=== PATIENT | male | born 1945 | race Caucasian/White ===

== ENCOUNTER 2018-07-03 19:13 | Emergency (ER) | payer MEDICARE, OTHER, SELFPAY ==
[2018-07-03 19:14] VITALS: BP 167/91; PULSE 58; RESP 20; TEMP 36.5; O2SAT 98; BMI 27.9
--- NOTE | 2018-07-03 19:58 | DI.CT.S_ITS ---
PROCEDURE: CT HEAD/BRAIN WO CON INDICATIONS: double vision TECHNIQUE: Noncontrast 4.5 mm thick angled axial sections acquired from the foramen magnum to the vertex, with coronal and sagittal reformats. For radiation dose reduction, the following was used: automated exposure control, adjustment of mA and/or kV according to patient size. COMPARISON: [facility], CT, HEAD WITHOUT CONTRAST, 11/28/2016, 19:22. FINDINGS: Image quality: Excellent. CSF spaces: Basal cisterns are patent. No extra-axial fluid collections. The ventricles are symmetric in size and shape. Brain: No intracranial bleeds or masses. There is cerebral volume loss for age, with resultant ventricular and sulcal prominence. There are periventricular and deep white matter chronic small vessel ischemic changes. There is intracranial internal carotid artery atherosclerosis. Skull and face: Calvarium and visualized facial bones appear intact, without suspicious lesions. Sinuses: Visualized sinuses and mastoids are clear. IMPRESSION: No acute intracranial abnormality. Dictated by: Tai Solo M.D. on 07/03/2018 at 20:40 Approved by: Tai Solo M.D. on 07/03/2018 at 20:41
--- NOTE | 2018-07-03 19:58 | DI.RAD.S_ITS ---
PROCEDURE: XR CHEST 1V INDICATIONS: palpitations TECHNIQUE: One view of the chest was acquired. COMPARISON: [facility], , CHEST 2 VIEW, 08/27/2011, 16:27. FINDINGS: Surgical changes and devices: Median sternotomy. Lungs and pleura: No pleural effusions or pneumothorax. Lungs are clear. Mediastinum: Mediastinal contours appear normal. Heart size is normal. Bones and chest wall: No suspicious bony lesions. Overlying soft tissues appear unremarkable. IMPRESSION: No acute process. Dictated by: Tai Solo M.D. on 07/03/2018 at 20:40 Approved by: Tai Solo M.D. on 07/03/2018 at 20:40
[2018-07-03 20:06] LABS: Add Manual Diff / Slide Review NO; Basophils Percent Auto 0.5 % (0-2); Eosinophils Percent Auto 1.2 % (2-4); Hematocrit 42.2 % (41-53); Hemoglobin 14.4 g/dL (13.5-17.5); Lymphocytes Percent Auto 26.6 % (25-40); Mean Corpuscular HGB Conc 34.1 % (30-36); Mean Corpuscular Hemoglobin 32.1 PG (26-34); Mean Corpuscular Volume 94.1 fL (80-100); Monocytes Percent Auto 10.3 % (3-14); Neutrophils Absolute Auto 5300 /uL (3000-5900); Neutrophils Percent Auto 61.4 % (50-75); Platelet Count 169 X10^3/uL (150-400); Red Blood Cell Count 4.49 X10^6/uL (4.5-5.9); Red Cell Distribution Width 13.1 % (11.6-14.8); White Blood Cell Count 8.7 X10^3/uL (4.5-11.0)
[2018-07-03 20:10] LABS: Alanine Aminotransferase 34 IU/L (21-72); Albumin 4.3 g/dL (3.5-5.0); Albumin Globulin Ratio 1.3 (1.0-2.8); Alkaline Phosphatase 74 U/L (38-126); Aspartate Aminotransferase 27 IU/L (17-59); Bilirubin Total 0.5 mg/dL (0.2-1.3); Blood Urea Nitrogen 24 mg/dL (9-20); Calcium 8.7 mg/dL (8.4-10.2); Carbon Dioxide 27 mmol/L (22-32); Chloride 104 mmol/L (98-107); Creatine Kinase 59 U/L (55-170); Globulin 3.3 g/dL (1.7-4.1); Glucose 111 mg/dL (80-110); HEMOLYSIS 21 (0-50); Potassium 4.5 mmol/L (3.4-5.1); Sodium 144 mmol/L (137-145); Total Protein 7.6 g/dL (6.3-8.2)
[2018-07-03 20:22] LABS: Troponin I 0.012 ng/mL (0.01-0.034)
[2018-07-03] MEDS: SODIUM CHLORIDE 0.9% 1,000 ML 1000 ML IV (20:44)
[2018-07-03 21:00] VITALS: BP 166/99; PULSE 67; RESP 23; O2SAT 95
--- NOTE | 2018-07-03 21:22 | ED.ARRPALP ---
HPI - Arrhythmia/Palpitations General Chief Complaint: Arrhythmia/Palpitations Stated Complaint: Double vision,states blood pressure elevated Time Seen by Provider: 07/03/18 19:37 Source: patient Mode of arrival: ambulatory Limitations: no limitations History of Present Illness HPI narrative: patient is a 73-year-old male who presents a with heart palpitations and double vision it he says he knows that his heart skips a beat. He did have a minute and half of double vision today. He got a little tunnel vision and lightheaded. He did not pass out. He had no speech difficulty or weakness. No facial drooping. he has had this happen a couple times over the last 6 months. He has a admitting counselor in [place] who wants him to have a Holter monitor which he in the past had refused because he was too busy. MD complaint: rapid heart beat Related Data Home Medications Medication Instructions Recorded Confirmed multivitamin [Multiple Vitamins] 1 tab PO QDAY #0 11/28/16 nitroglycerin [Nitrostat] 0.4 mg SUBLINGUAL PRN PRN #0 11/28/16 simvastatin 20 mg PO HS #0 11/29/16 carvedilol [Coreg] 25 mg PO BID #0 03/25/17 Previous Rx's Medication Instructions Recorded cephalexin [Keflex] 500 mg PO TID #21 cap 03/25/17 Allergies Allergy/AdvReac Type Severity Reaction Status Date / Time No Known Allergies Allergy Uncoded 12/29/17 12:37 Review of Systems Review of Systems All systems reviewed & are unremarkable except as noted in HPI and below Constitutional Denies chills, Denies fever(s), Denies lethargy and Denies weakness Eyes Reports diplopia Cardiovascular Reports as per HPI, Denies dyspnea and Denies dyspnea on exertion Respiratory Denies cough, Denies dyspnea, Denies dyspnea on exertion and Denies wheezing Gastrointestinal Gastrointestinal: Denies abdominal pain, Denies change in bowel habits, Denies diarrhea, Denies nausea and Denies vomiting Genitourinary Denies hematuria, Denies flank pain, Denies urinary incontinence and Denies urinary urgency Musculoskeletal Denies back pain, Denies muscle weakness, Denies numbness and Denies tingling Integumentary/Breasts Denies pruritus, Denies erythema, Denies rash and Denies wounds Neurologic Denies numbness, Denies tingling and Denies weakness Allergic/Immunologic Denies wheezing PFSH Medical History Coronary artery disease (Acute) Hyperlipidemia (Acute) Hypertension (Acute) Social History Smoking Status: Former smoker Exam Initial Vital Signs Initial Vital Signs: Vital Signs Temperature 97.7 F 07/03/18 19:14 Pulse Rate 58 L 07/03/18 19:14 Respiratory Rate 20 07/03/18 19:14 Blood Pressure 167/91 H 07/03/18 19:14 Pulse Oximetry 98 07/03/18 19:14 GENERAL: pleasant cooperative male alert oriented x3 no acute distress HEENT: Head atraumatic,EOMI, pupils reactive, face symmetric, neck is supple CARDIOVASCULAR: Regular rate and rhythm without murmurs, rubs or gallops. RESPIRATORY: Breath sounds equal bilaterally, no wheezes rales or rhonchi. ABDOMEN: Soft, nontender. Normoactive bowel sounds all 4 quadrants. No guarding or rebound. EXTREMITIES: Normal range of motion, no clubbing or edema. Neurovascularly intact NEUROLOGICAL: Alert and oriented x4.Normal gait and speech. Cranial nerves II through XII grossly intact. SKIN: Warm, dry, no laceration, no petechiae, no rashes or lesions. Course Orders Ordered: ED Orders 07/03/18 19:51 Complete Blood Count AUTO DIFF Stat Comprehensive Metabolic Panel Stat Troponin & CK Cardiac Panel Stat 07/03/18 19:58 CT head/brain wo con Stat XR chest 1V Stat Discontinued Medications Sodium Chloride (Normal Saline 0.9%) 1,000 mls @ 1,000 mls/hr IV BOLUS ONE Stop: 07/03/18 21:38 Last Infusion: 07/03/18 21:32 Dose: 0 mls/hr Admin: 07/03/18 20:44 Dose: 1,000 mls/hr Vital Signs - 8 hr 07/03/18 19:14 07/03/18 21:00 Temperature 97.7 F Pulse Rate 58 L 67 Respiratory Rate 20 23 Blood Pressure 167/91 H Blood Pressure [Right Arm] 166/99 H Pulse Oximetry 98 95 MDM - Arrhythmia/Palpitations Medical Records Attestation: I reviewed the patient's medical records. Lab Data Attestation: I reviewed the patient's lab results. Result diagrams: 07/03/18 19:51 07/03/18 19:51 Lab Results 10/14/18 10/14/18 Range/Units 19:51 19:51 WBC 8.7 (4.5-11.0) X10^3/uL RBC 4.49 L (4.5-5.9) X10^6/uL Hgb 14.4 (13.5-17.5) g/dL Hct 42.2 (41-53) % MCV 94.1 (80-100) fL MCH 32.1 (26-34) PG MCHC 34.1 (30-36) % RDW 13.1 (11.6-14.8) % Plt Count 169 (150-400) X10^3/uL Neut % (Auto) 61.4 (50-75) % Lymph % (Auto) 26.6 (25-40) % Davis % (Auto) 10.3 (3-14) % Eos % (Auto) 1.2 L (2-4) % Baso % (Auto) 0.5 (0-2) % Neut # (Auto) 5300 (3028-0423) /uL Sodium 144 (137-145) mmol/L Potassium 4.5 (3.4-5.1) mmol/L Chloride 104 (98-107) mmol/L Carbon Dioxide 27 (22-32) mmol/L BUN 24 H (9-20) mg/dL Creatinine 1.50 H (0.66-1.25) mg/dL Estimated GFR 46.0 L (>60) mL/min BUN/Creatinine Ratio 16.0 (6-22) Glucose 111 H (80-110) mg/dL Calcium 8.7 (8.4-10.2) mg/dL Total Bilirubin 0.5 (0.2-1.3) mg/dL AST 27 (17-59) IU/L ALT 34 (21-72) IU/L Alkaline Phosphatase 74 (38-126) U/L Total Creatine Kinase 59 (55-170) U/L CK-MB (CK-2) TNP CK-MB (CK-2) Rel Index TNP Troponin I 0.012 (0.01-0.034) ng/mL Total Protein 7.6 (6.3-8.2) g/dL Albumin 4.3 (3.5-5.0) g/dL Globulin 3.3 (1.7-4.1) g/dL Albumin/Globulin Ratio 1.3 (1.0-2.8) Imaging Data Chest x-ray: Radiologist's impression: PROCEDURE: XR CHEST 1V INDICATIONS: palpitations TECHNIQUE: One view of the chest was acquired. COMPARISON: [facility], CR, CHEST 2 VIEW, 08/27/2011, 16:27. FINDINGS: Surgical changes and devices: Median sternotomy. Lungs and pleura: No pleural effusions or pneumothorax. Lungs are clear. Mediastinum: Mediastinal contours appear normal. Heart size is normal. Bones and chest wall: No suspicious bony lesions. Overlying soft tissues appear unremarkable. IMPRESSION: No acute process. Dictated by: Tai Solo M.D. on 07/03/2018 at 20:[address]: Radiologist's impression: PROCEDURE: CT HEAD/BRAIN WO CON INDICATIONS: double vision TECHNIQUE: Noncontrast 4.5 mm thick angled axial sections acquired from the foramen magnum to the vertex, with coronal and sagittal reformats. For radiation dose reduction, the following was used: automated exposure control, adjustment of mA and/or kV according to patient size. COMPARISON: [facility], CT, HEAD WITHOUT CONTRAST, 11/28/2016, 19:22. FINDINGS: Image quality: Excellent. CSF spaces: Basal cisterns are patent. No extra-axial fluid collections. The ventricles are symmetric in size and shape. Brain: No intracranial bleeds or masses. There is cerebral volume loss for age, with resultant ventricular and sulcal prominence. There are periventricular and deep white matter chronic small vessel ischemic changes. There is intracranial internal carotid artery atherosclerosis. Skull and face: Calvarium and visualized facial bones appear intact, without suspicious lesions. Sinuses: Visualized sinuses and mastoids are clear. IMPRESSION: No acute intracranial abnormality. Dictated by: Tai Solo M.D. on 07/03/2018 at 20:40 ECG Data Attestation: I personally reviewed and interpreted this ECG as follows: Prior ECG tracings: available for review Interpretation: sinus rhythm rate 67 appear interval 207, QRS 94, QTC 440, PVCs noted does have T-wave inversions noted in V5 and V6 no ST elevation or depression more prominent T-wave inversions this EKG compared to previous but that are present from 2017 this is similar EKG MDM Narrative Medical decision making narrative: patient has no chest pain or heart palpitations. He had a brief episode of double vision but no focal deficits or stroke like symptoms. He does have a admitting counselor in [place] who recommend she follow up for a Holter monitor. He also has had no syncopal episodes. I discussed all findings with the patient Education has been performed regarding treatment plan, diagnosis, warning signs and symptoms and all concerns have been addressed. Verbally agree with and understood all of the above. Discharge Plan Departure Patient Disposition: Home Clinical Impression: Ventricular premature beats Discharge Date/Time: 07/03/18 21:33 Interventions: ED Discharge Assessment Last Done: 07/03/18 21:32 Instructions: Premature Ventricular Beats Activity Restrictions/Additional Instructions: *You have been diagnosed with Heart palpitations *What to do: decrease caffeine, increase water intake, blood work and head CT are reassuring - need Holter monitor, talk to your admitting counselor about this tomorrow *Continue to take medications as directed *Follow up with your primary care provider in 2-3 days *Return to ER if you should have persistent dizziness, lightheadedness, weakness, speech trouble any new, worsening or concerning symptoms Prescriptions: No Action multivitamin [Multiple Vitamins] 1 EACH tablet 1 tab PO QDAY Qty: 0 RF: 0 nitroglycerin [Nitrostat] 0.4 MG tablet, sublingual 0.4 mg Sublingual PRN PRNQty: 0 RF: 0 simvastatin 40 MG tablet 20 mg PO HS Qty: 0 RF: 0 carvedilol [Coreg] 25 MG tablet 25 mg PO BID Qty: 0 RF: 0 cephalexin [Keflex] 500 MG capsule 500 mg PO TID Qty: 21 RF: 0 Referrals: Juan R Pepe MD [Primary Care Provider] -
--- NOTE | 2018-07-03 21:25 | ED_ITS ---
HPI - Arrhythmia/Palpitations General Chief Complaint: Arrhythmia/Palpitations Stated Complaint: Double vision,states blood pressure elevated Time Seen by Provider: 07/03/18 19:37 Source: patient Mode of arrival: ambulatory Limitations: no limitations History of Present Illness HPI narrative: patient is a 73-year-old male who presents a with heart palpitations and double vision it he says he knows that his heart skips a beat. He did have a minute and half of double vision today. He got a little tunnel vision and lightheaded. He did not pass out. He had no speech difficulty or weakness. No facial drooping. he has had this happen a couple times over the last 6 months. He has a inside sales coordinator in [place] who wants him to have a Holter monitor which he in the past had refused because he was too busy. MD complaint: rapid heart beat Related Data Home Medications Medication Instructions Recorded Confirmed multivitamin [Multiple Vitamins] 1 tab PO QDAY #0 11/28/16 nitroglycerin [Nitrostat] 0.4 mg SUBLINGUAL PRN PRN #0 11/28/16 simvastatin 20 mg PO HS #0 11/29/16 carvedilol [Coreg] 25 mg PO BID #0 03/25/17 Previous Rx's Medication Instructions Recorded cephalexin [Keflex] 500 mg PO TID #21 cap 03/25/17 Allergies Allergy/AdvReac Type Severity Reaction Status Date / Time No Known Allergies Allergy Uncoded 12/29/17 12:37 Review of Systems Review of Systems All systems reviewed & are unremarkable except as noted in HPI and below Constitutional Denies chills, Denies fever(s), Denies lethargy and Denies weakness Eyes Reports diplopia Cardiovascular Reports as per HPI, Denies dyspnea and Denies dyspnea on exertion Respiratory Denies cough, Denies dyspnea, Denies dyspnea on exertion and Denies wheezing Gastrointestinal Gastrointestinal: Denies abdominal pain, Denies change in bowel habits, Denies diarrhea, Denies nausea and Denies vomiting Genitourinary Denies hematuria, Denies flank pain, Denies urinary incontinence and Denies urinary urgency Musculoskeletal Denies back pain, Denies muscle weakness, Denies numbness and Denies tingling Integumentary/Breasts Denies pruritus, Denies erythema, Denies rash and Denies wounds Neurologic Denies numbness, Denies tingling and Denies weakness Allergic/Immunologic Denies wheezing PFSH Medical History Coronary artery disease (Acute) Hyperlipidemia (Acute) Hypertension (Acute) Social History Smoking Status: Former smoker Exam Initial Vital Signs Initial Vital Signs: Vital Signs Temperature 97.7 F 07/03/18 19:14 Pulse Rate 58 L 07/03/18 19:14 Respiratory Rate 20 07/03/18 19:14 Blood Pressure 167/91 H 07/03/18 19:14 Pulse Oximetry 98 07/03/18 19:14 GENERAL: pleasant cooperative male alert oriented x3 no acute distress HEENT: Head atraumatic,EOMI, pupils reactive, face symmetric, neck is supple CARDIOVASCULAR: Regular rate and rhythm without murmurs, rubs or gallops. RESPIRATORY: Breath sounds equal bilaterally, no wheezes rales or rhonchi. ABDOMEN: Soft, nontender. Normoactive bowel sounds all 4 quadrants. No guarding or rebound. EXTREMITIES: Normal range of motion, no clubbing or edema. Neurovascularly intact NEUROLOGICAL: Alert and oriented x4.Normal gait and speech. Cranial nerves II through XII grossly intact. SKIN: Warm, dry, no laceration, no petechiae, no rashes or lesions. Course Orders Ordered: ED Orders 07/03/18 19:51 Complete Blood Count AUTO DIFF Stat Comprehensive Metabolic Panel Stat Troponin & CK Cardiac Panel Stat 07/03/18 19:58 CT head/brain wo con Stat XR chest 1V Stat Discontinued Medications Sodium Chloride (Normal Saline 0.9%) 1,000 mls @ 1,000 mls/hr IV BOLUS ONE Stop: 07/03/18 21:38 Last Infusion: 07/03/18 21:32 Dose: 0 mls/hr Admin: 07/03/18 20:44 Dose: 1,000 mls/hr Vital Signs - 8 hr 07/03/18 19:14 07/03/18 21:00 Temperature 97.7 F Pulse Rate 58 L 67 Respiratory Rate 20 23 Blood Pressure 167/91 H Blood Pressure [Right Arm] 166/99 H Pulse Oximetry 98 95 MDM - Arrhythmia/Palpitations Medical Records Attestation: I reviewed the patient's medical records. Lab Data Attestation: I reviewed the patient's lab results. Result diagrams: 07/03/18 19:51 07/03/18 19:51 Lab Results 10/14/18 10/14/18 Range/Units 19:51 19:51 WBC 8.7 (4.5-11.0) X10^3/uL RBC 4.49 L (4.5-5.9) X10^6/uL Hgb 14.4 (13.5-17.5) g/dL Hct 42.2 (41-53) % MCV 94.1 (80-100) fL MCH 32.1 (26-34) PG MCHC 34.1 (30-36) % RDW 13.1 (11.6-14.8) % Plt Count 169 (150-400) X10^3/uL Neut % (Auto) 61.4 (50-75) % Lymph % (Auto) 26.6 (25-40) % [place] % (Auto) 10.3 (3-14) % Eos % (Auto) 1.2 L (2-4) % Baso % (Auto) 0.5 (0-2) % Neut # (Auto) 5300 (3272-2493) /uL Sodium 144 (137-145) mmol/L Potassium 4.5 (3.4-5.1) mmol/L Chloride 104 (98-107) mmol/L Carbon Dioxide 27 (22-32) mmol/L BUN 24 H (9-20) mg/dL Creatinine 1.50 H (0.66-1.25) mg/dL Estimated GFR 46.0 L (>60) mL/min BUN/Creatinine Ratio 16.0 (6-22) Glucose 111 H (80-110) mg/dL Calcium 8.7 (8.4-10.2) mg/dL Total Bilirubin 0.5 (0.2-1.3) mg/dL AST 27 (17-59) IU/L ALT 34 (21-72) IU/L Alkaline Phosphatase 74 (38-126) U/L Total Creatine Kinase 59 (55-170) U/L CK-MB (CK-2) TNP CK-MB (CK-2) Rel Index TNP Troponin I 0.012 (0.01-0.034) ng/mL Total Protein 7.6 (6.3-8.2) g/dL Albumin 4.3 (3.5-5.0) g/dL Globulin 3.3 (1.7-4.1) g/dL Albumin/Globulin Ratio 1.3 (1.0-2.8) Imaging Data Chest x-ray: Radiologist's impression: PROCEDURE: XR CHEST 1V INDICATIONS: palpitations TECHNIQUE: One view of the chest was acquired. COMPARISON: [facility], CR, CHEST 2 VIEW, 08/27/2011, 16:27. FINDINGS: Surgical changes and devices: Median sternotomy. Lungs and pleura: No pleural effusions or pneumothorax. Lungs are clear. Mediastinum: Mediastinal contours appear normal. Heart size is normal. Bones and chest wall: No suspicious bony lesions. Overlying soft tissues appear unremarkable. IMPRESSION: No acute process. Dictated by: Tai Solo M.D. on 07/03/2018 at 20:[address]: Radiologist's impression: PROCEDURE: CT HEAD/BRAIN WO CON INDICATIONS: double vision TECHNIQUE: Noncontrast 4.5 mm thick angled axial sections acquired from the foramen magnum to the vertex, with coronal and sagittal reformats. For radiation dose reduction, the following was used: automated exposure control, adjustment of mA and/or kV according to patient size. COMPARISON: [facility], CT, HEAD WITHOUT CONTRAST, 11/28/2016, 19:22. FINDINGS: Image quality: Excellent. CSF spaces: Basal cisterns are patent. No extra-axial fluid collections. The ventricles are symmetric in size and shape. Brain: No intracranial bleeds or masses. There is cerebral volume loss for age , with resultant ventricular and sulcal prominence. There are periventricular and deep white matter chronic small vessel ischemic changes. There is intracranial internal carotid artery atherosclerosis. Skull and face: Calvarium and visualized facial bones appear intact, without suspicious lesions. Sinuses: Visualized sinuses and mastoids are clear. IMPRESSION: No acute intracranial abnormality. Dictated by: Tai Solo M.D. on 07/03/2018 at 20:40 ECG Data Attestation: I personally reviewed and interpreted this ECG as follows: Prior ECG tracings: available for review Interpretation: sinus rhythm rate 67 appear interval 207, QRS 94, QTC 440, PVCs noted does have T-wave inversions noted in V5 and V6 no ST elevation or depression more prominent T-wave inversions this EKG compared to previous but that are present from 2017 this is similar EKG MDM Narrative Medical decision making narrative: patient has no chest pain or heart palpitations. He had a brief episode of double vision but no focal deficits or stroke like symptoms. He does have a inside sales coordinator in [place] who recommend she follow up for a Holter monitor. He also has had no syncopal episodes. I discussed all findings with the patient Education has been performed regarding treatment plan, diagnosis, warning signs and symptoms and all concerns have been addressed. Verbally agree with and understood all of the above. Discharge Plan Departure Patient Disposition: Home Clinical Impression: Ventricular premature beats Discharge Date/Time: 07/03/18 21:33 Interventions: ED Discharge Assessment Last Done: 07/03/18 21:32 Instructions: Premature Ventricular Beats Activity Restrictions/Additional Instructions: *You have been diagnosed with Heart palpitations *What to do: decrease caffeine, increase water intake, blood work and head CT are reassuring - need Holter monitor, talk to your inside sales coordinator about this tomorrow *Continue to take medications as directed *Follow up with your primary care provider in 2-3 days *Return to ER if you should have persistent dizziness, lightheadedness, weakness, speech trouble any new, worsening or concerning symptoms Prescriptions: No Action multivitamin [Multiple Vitamins] 1 EACH tablet 1 tab PO QDAY Qty: 0 RF: 0 nitroglycerin [Nitrostat] 0.4 MG tablet, sublingual 0.4 mg Sublingual PRN PRNQty: 0 RF: 0 simvastatin 40 MG tablet 20 mg PO HS Qty: 0 RF: 0 carvedilol [Coreg] 25 MG tablet 25 mg PO BID Qty: 0 RF: 0 cephalexin [Keflex] 500 MG capsule 500 mg PO TID Qty: 21 RF: 0 Referrals: Juan R Pepe MD [Primary Care Provider] -
== END 2018-07-03 21:33 | disposition home or self-care (01) ==
PROVIDERS: Emergency Provider Emergency Medicine; Family Provider Internal Medicine Cardiovascular Disease; PCP Internal Medicine Cardiovascular Disease
DX: I49.3 Ventricular premature depolarization (principal); H53.489 Generalized contraction of visual field, unspecified eye; H53.2 Diplopia
CPT/HCPCS: 36591; 70450; 71045; 80053; 82550; 84484; 85025; 93005; 93010; 96360; 99283; 99285

== ENCOUNTER 2021-04-19 10:53 | Emergency (ER) | payer MEDICARE, OTHER, SELFPAY ==
--- NOTE | 2021-04-19 11:03 | ED_ITS ---
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 He was using a personal automobile washer steam with water when he accidentally sprayed his finger. He suffered a laceration which he cleaned at home and then wrapped with gauze. He has full but painful range of motion and denies any numbness, tingling or weakness. He is otherwise well and free of complaint Related Data Home Medications Medication Instructions Recorded Confirmed multivitamin (Multiple Vitamins) 1 tab PO QDAY #0 11/28/16 nitroglycerin 0.4 mg sublingual 0.4 mg SUBLINGUAL PRN PRN #0 11/28/16 tablet (Nitrostat) simvastatin 40 mg tablet 20 mg PO HS #0 11/29/16 carvedilol 25 mg tablet (Coreg) 25 mg PO BID #0 03/25/17 Previous Rx's Medication Instructions Recorded cephalexin 500 mg capsule (Keflex) 500 mg PO TID #21 cap 03/25/17 cephalexin 500 mg capsule 500 mg PO Q6H 7 Days #28 cap 04/19/21 Allergies Allergy/AdvReac Type Severity Reaction Status Date / Time No Known Allergies Allergy Uncoded 12/29/17 12:37 Review of Systems Review of Systems Narrative: GENERAL: Denies chills, fatigue, malaise, fever, sweats. HEENT: Denies sinus pain, ear pain, sore throat, difficulty swallowing, dizziness. RESPIRATORY: Denies dyspnea, cough, wheezing, hemoptysis, sputum. CARDIOVASCULAR: Denies chest pain, palpitations, orthopnea, edema, GASTROINTESTINAL: Denies nausea, vomiting, abdominal pain, diarrhea, constipation, melena. : Denies dysuria, frequency, incontinence, hematuria, urinary retention. MUSCULOSKELETAL: See HPI SKIN: Denies rash, skin lesions, or other NEUROLOGIC: Denies weakness, headache, numbness, change in speech, confusion, seizures, incoordination. PSYCHIATRIC: No concerning psychosocial issues. 12 point review of systems is negative except for those stated above Patient History Medical History Coronary artery disease Hyperlipidemia Hypertension Social History Smoking Status: Former smoker Smoking Status: Former smoker Substance Use Type: does not use Exam Narrative Exam Narrative: GEN: AOx3 and in mild distress EYES: Pupils are equal, round, and reactive to light and accommodation. Extraoccular muscles are intact bilaterally. There is no subconjunctival hemorrhage or exudate. CHEST: Lungs are clear to auscultation bilaterally and free of wheezes, rales, or rhonchi. Heart rate is regular rhythm, there are no murmurs, clicks, rubs, or gallops. There is no chest wall tenderness. ABD: Abdomen is soft and nontender. There is no guarding or rebound. Bowel sounds are normal in all 4 quadrants. There is no mass or organomegaly. EXT: Superficial abrasions/laceration noted on the dorsum of the left index finger without active bleeding, sensation intact, no evidence of neurovascular compromise. Full painless ROM of all extremities with no loss of sensation or strength. SKIN: Warm, pink, and dry. No erythema or rash Initial Vital Signs Initial Vital Signs: Vital Signs Temperature 98.2 F 04/19/21 11:07 Pulse Rate 68 04/19/21 11:07 Respiratory Rate 15 04/19/21 11:07 Blood Pressure 215/101 H 04/19/21 11:07 Pulse Oximetry 97 04/19/21 11:07 Procedures Orthopedic Splinting/Casting Injury #1: Side: left Upper Extremity Injury Location: finger Upper Extremity Immobilizer: aluminum form splint Post splinting neuro exam: intact Post splinting vascular exam: intact Placed by: Nursing Course Orders Ordered: ED Orders 04/19/21 11:10 XR finger LT min 2V Stat Vital Signs Vital signs: Vital Signs - 8 hr 04/19/21 11:07 Temperature 98.2 F Pulse Rate 68 Respiratory Rate 15 Blood Pressure 215/101 H Pulse Oximetry 97 MDM - Extremity Injury (Upper) Imaging Data Extremity x-ray #1: Radiologist's Impression: [address] [id number] ReportSigned Patient: Peña Corrigan EMR#: [id number]: 6Acct:[id number]/Sex: 75 / MDate of Service: 04/19/21Lo: EDAccession Number: [id number] Procedure: XR finger LT min 2V Ordering Provider: Emanuel Meyers D.O. PROCEDURE: XR FINGER LT MIN 2V INDICATIONS: finger vs automobile washer steam. left hand 2nd digit TECHNIQUE: AP hand, 2 views of the left 2nd finger(s) acquired. COMPARISON: None. FINDINGS: Bones: No fractures or dislocations. No suspicious bony lesions. Soft tissues: No suspicious soft tissue calcifications. IMPRESSION: No acute fracture. No osseous lesion. If symptoms and/or clinical suspicion for pathology persist, further assessment with repeat, or advanced imaging (e.g., CT, MRI, or bone scan) may be helpful for further assessment. Dictated by: Tai Solo M.D. on 04/19/2021 at 10:55 Approved by: Tai Solo M.D. 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 No signs of infection, full range of motion. Return precautions given and questions answered to his apparent satisfaction Discharge Plan Departure Patient Disposition: Home Clinical Impression: Abrasion of finger of left hand Qualifiers: Encounter type: initial encounter Qualified Code(s): S60.419A - Abrasion of unspecified finger, initial encounter Activity Restrictions/Additional Instructions: *You have been diagnosed with [automobile washer steam injury of left index finger with abrasion/laceration, no indication for sutures or current infection] *What to do: *Please continue to take your regular medications as directed. [x ] New medication prescriptions sent to your pharmacy: [ ] [ ] New medication written as a paper prescription [ ] No new medications given *Please follow up with your primary care provider in 2-3 days, call for an appointment. Let them know you were seen in the Emergency Department and that we ask that you be seen in follow up. We will electronically transmit a record of today's note if your PCP is in our system *If you do not have a primary care provider please contact the [facility] Resource line at [phone]. They will ask some questions about your medical history and help get you set up with a doctor in the community. *Return to Emergency Department if you should have any new, worsening or concerning symptoms, such as [fever greater than 101 F, shaking chills, worsening pain, persistent vomiting or other bothersome symptoms] Prescriptions: New cephalexin 500 mg capsule 500 mg PO Q6H 7 Days Qty: 28 RF: 0 No Action multivitamin [Multiple Vitamins] 1 EACH tablet 1 tab PO QDAY Qty: 0 RF: 0 nitroglycerin [Nitrostat] 0.4 MG tablet, sublingual 0.4 mg Sublingual PRN PRNQty: 0 RF: 0 simvastatin 40 MG tablet 20 mg PO HS Qty: 0 RF: 0 carvedilol [Coreg] 25 MG tablet 25 mg PO BID Qty: 0 RF: 0 cephalexin [Keflex] 500 MG capsule 500 mg PO TID Qty: 21 RF: 0 Referrals: Juan R Pepe MD [Primary Care Provider] -
[2021-04-19 11:07] VITALS: BP 215/101; PULSE 68; RESP 15; TEMP 36.8; O2SAT 97; BMI 27.2
--- NOTE | 2021-04-19 11:10 | DI.RAD.S_ITS ---
PROCEDURE: XR FINGER LT MIN 2V INDICATIONS: finger vs bottle washer. left hand 2nd digit TECHNIQUE: AP hand, 2 views of the left 2nd finger(s) acquired. COMPARISON: None. FINDINGS: Bones: No fractures or dislocations. No suspicious bony lesions. Soft tissues: No suspicious soft tissue calcifications. IMPRESSION: No acute fracture. No osseous lesion. If symptoms and/or clinical suspicion for pathology persist, further assessment with repeat, or advanced imaging (e.g., CT, MRI, or bone scan) may be helpful for further assessment. Dictated by: Tai Solo M.D. on 04/19/2021 at 10:55 Approved by: Tai Solo M.D. on 04/19/2021 at 10:55
== END 2021-04-19 12:20 | disposition home or self-care (01) ==
PROVIDERS: Emergency Provider Emergency Medicine; Family Provider Internal Medicine Cardiovascular Disease; PCP Internal Medicine Cardiovascular Disease
DX: S60.419A Abrasion of unspecified finger, initial encounter (principal); X58.XXXA Exposure to other specified factors, initial encounter
CPT/HCPCS: 73140; 99281; 99283

== ENCOUNTER 2024-07-04 14:58 | Inpatient (IN) | payer MEDICARE, SELFPAY ==
[2024-07-04] VITALS (22 sets, daily range): BP systolic 135–199; BP diastolic 72–96; PULSE 48–75; RESP 10–25; TEMP 36.1–36.9; O2SAT 94–100; BMI 27.9
--- NOTE | 2024-07-04 15:06 | ED_ITS ---
HPI - Syncope <Ham Eisenberg DO - Last Filed: 07/04/24 17:49> General Chief Complaint: Syncope Stated Complaint: syncope, fall onto chest Time Seen by Provider: 07/04/24 15:06 History of Present Illness HPI narrative: Patient is a 79-year-old male with a history of hypertension, hyperlipidemia, CABG, comes into the ED from home for evaluation of syncope. States that he was using a shovel started feeling lightheaded dizzy, states that he then fell forward but did not actually pass out, states that the shovel hit him in his chest it is now having chest pain over his heart. He has not on any blood thinners, he has not complaining of any other symptoms at this time no visual disturbances no shortness of breath no fever chills nausea vomiting or any other GI/ symptoms. Related Data Home Medications Medication Instructions Recorded Confirmed atorvastatin 40 mg tablet 40 mg PO DAILY 07/04/24 07/04/24 losartan 100 1 tab PO DAILY blood pressure 07/04/24 07/04/24 mg-hydrochlorothiazide 25 mg tablet Allergies Allergy/AdvReac Type Severity Reaction Status Date / Time No Known Drug Allergies Allergy Verified 07/04/24 15:11 Review of Systems <Ham Eisenberg DO - Last Filed: 07/04/24 17:49> Review of Systems Narrative: General: Denies fever, chills, weight loss HEENT: Denies headache, eye drainage, eye irritation, head trauma, sore throat, voice change Cardiovascular: Denies any chest pain, palpitations, shortness of breath, tachycardia Respiratory: Denies any shortness of breath, cough, wheeze, stridor GI/: Denies any abdominal pain, nausea, vomiting, diarrhea, bright red blood per rectum, melanotic stools, urinary frequency, urinary retention, dysuria, hematuria MSK: Left anterior chest pain/rib pain Skin: Denies any rashes, lesions, discoloration Neuro: Positive lightheaded and dizziness Psych: Denies SI/HI Patient History <Ham Eisenberg DO - Last Filed: 07/04/24 17:49> Medical History Coronary artery disease Hyperlipidemia Hypertension Social History Smoking Status: Former smoker Smoking Status: Former smoker alcohol intake frequency: 0-2 drinks per day Substance Use Type: does not use Exam <Ham Eisenberg DO - Last Filed: 07/04/24 17:49> Narrative Exam Narrative: General: Cooperative, comfortable, well-developed, not in acute distress HEENT: Normocephalic, atraumatic, PERRLA, normal sclera, eyelids normal, Neck: Active full range of motion, atraumatic Chest: Normal to inspection, negative crepitus, no overlying erythema ecchymosis Respiratory: Normal respiratory effort, not in acute respiratory distress, clear to auscultation bilaterally negative cough, wheeze, tachypnea, rhonchi, rales Cardiology: Regular rate rhythm negative gallop, murmur, rubs GI/: Normal to inspection, soft, nonrigid, no tenderness to palpation, exam deferred MSK: Full range of active range of motion of all 4 extremities, atraumatic Skin: No rashes lesions noted Neuro: Alert awake oriented x3, moves all 4 extremities spontaneously, cranial nerves intact, able to answer all questions appropriately follows commands appropriately Psych: Cooperative, negative suicidal or homicidal ideations Initial Vital Signs Initial Vital Signs: Vital Signs Temperature 97.0 F L 07/04/24 14:58 Pulse Rate 53 L 07/04/24 14:58 Respiratory Rate 14 07/04/24 14:58 Blood Pressure 199/94 H 07/04/24 14:58 Pulse Oximetry 99 07/04/24 14:58 Oxygen Delivery Method Room Air 07/04/24 14:58 <Perez Marquis DO - Last Filed: 07/05/24 00:15> Initial Vital Signs Initial Vital Signs: Vital Signs Temperature 97.0 F L 07/04/24 14:58 Pulse Rate 53 L 07/04/24 14:58 Respiratory Rate 14 07/04/24 14:58 Blood Pressure 199/94 H 07/04/24 14:58 Pulse Oximetry 99 07/04/24 14:58 Oxygen Delivery Method Room Air 07/04/24 14:58 Course <Ham Eisenberg DO - Last Filed: 07/04/24 17:49> Orders Ordered: ED Orders 07/04/24 16:00 Complete Blood Count AUTO DIFF Stat Comprehensive Metabolic Panel Stat Magnesium Stat NT-proBNP (BNP-Adult 18+) Stat PTT Partial Thromboplastin Jorge Stat Prothrombin Time INR Stat Troponin & CK Cardiac Panel Stat 07/04/24 18:00 Trop I [Troponin I] Routine 07/04/24 18:19 CT angio chest PE protocol Stat 07/04/24 19:55 Education, smoking cessation ONGOING 07/05/24 05:00 Basic Metabolic Panel DAILY Complete Blood Count AUTO DIFF DAILY Acetaminophen (Acetaminophen 325 Mg Tablet) 650 mg PO Q6H PRN PRN Reason: Fever/Mild Pain (1-3) Hydrocodone Bitart/Acetaminophen (Hydrocodone/Acet 5/325 Tablet) 1 tab PO Q4H PRN PRN Reason: Pain, Moderate (4-6) Atorvastatin Calcium (Atorvastatin 20 Mg Tablet) 40 mg PO DAILY ROBERT Calcium Carbonate (Calcium Carbonate 500 Mg Tab) 1,000 mg PO Q4HR PRN PRN Reason: Dyspepsia Enoxaparin Sodium (Enoxaparin 40 Mg/0.4 Ml Syringe) 40 mg SUBCUT DAILY [facility] Hydrochlorothiazide (Hydrochlorothiazide 25 Mg Tablet) 25 mg PO DAILY [facility] Ketorolac Tromethamine (Ketorolac 30 Mg/Ml Vial) 30 mg IV Q6H PRN PRN Reason: Pain, Moderate (4-6) Stop: 07/09/24 19:59 Losartan Potassium (Losartan 50 Mg Tablet) 100 mg PO DAILY [facility] Morphine Sulfate (Morphine 4 Mg/Ml Inj) 3 mg IV Q2HR [facility] Last Admin: 07/04/24 21:45 Dose: Not Given Documented By: CHAMP Naloxone HCl (Naloxone 0.4 Mg/Ml Vial) 0.2 mg IV Q2MIN PRN PRN Reason: Opiate Reversal Ondansetron HCl (Ondansetron 4 Mg/2 Ml Inj) 4 mg IV Q8HR PRN PRN Reason: Nausea And Vomiting Discontinued Medications Aspirin (Aspirin 81 Mg Chew Tab) 324 mg PO NOW ONE Stop: 07/04/24 15:03 Last Admin: 07/04/24 15:42 Dose: Not Given Documented By: Sodium Chloride (Normal Saline 0.9%) 1,000 mls @ 1,000 mls/hr IV BOLUS ONE Stop: 07/04/24 18:49 Last Infusion: 07/04/24 19:34 Dose: Infused Documented By: Admin: 07/04/24 18:40 Dose: 1,000 mls/hr Documented By: Vital Signs Vital signs: Vital Signs - 8 hr 07/04/24 16:15 07/04/24 16:15 07/04/24 16:30 Pulse Rate 49 L 53 L Respiratory Rate 17 15 Blood Pressure 198/79 H Pulse Oximetry 94 97 07/04/24 16:30 07/04/24 16:45 07/04/24 16:45 Pulse Rate 62 Respiratory Rate 14 Blood Pressure 179/79 H 179/81 H Pulse Oximetry 96 07/04/24 17:00 07/04/24 17:00 07/04/24 17:16 Pulse Rate 59 L 59 L Respiratory Rate 14 13 Blood Pressure 159/72 H Pulse Oximetry 98 97 07/04/24 17:16 07/04/24 17:30 07/04/24 17:30 Pulse Rate 64 Respiratory Rate 19 Blood Pressure 162/77 H 175/85 H Pulse Oximetry 99 07/04/24 17:45 07/04/24 17:45 07/04/24 18:00 Pulse Rate 64 64 Respiratory Rate 17 25 H Blood Pressure 176/79 H Pulse Oximetry 97 98 07/04/24 18:01 07/04/24 18:01 07/04/24 18:15 Pulse Rate 64 Respiratory Rate 23 Blood Pressure 178/87 H 170/83 H Pulse Oximetry 99 07/04/24 18:15 07/04/24 18:30 07/04/24 18:30 Pulse Rate 59 L 57 L Respiratory Rate 14 15 Blood Pressure 168/79 H Pulse Oximetry 98 98 07/04/24 18:45 07/04/24 18:45 07/04/24 19:00 Pulse Rate 62 63 Respiratory Rate 18 18 Blood Pressure 174/96 H Pulse Oximetry 98 98 <Perez Marquis, DO - Last Filed: 07/05/24 00:15> Orders Ordered: ED Orders 07/04/24 16:00 Complete Blood Count AUTO DIFF Stat Comprehensive Metabolic Panel Stat Magnesium Stat NT-proBNP (BNP-Adult 18+) Stat PTT Partial Thromboplastin Jorge Stat Prothrombin Time INR Stat Troponin & CK Cardiac Panel Stat 07/04/24 18:00 Trop I [Troponin I] Routine 07/04/24 18:19 CT angio chest PE protocol Stat 07/04/24 19:55 Education, smoking cessation ONGOING 07/05/24 05:00 Basic Metabolic Panel DAILY Complete Blood Count AUTO DIFF DAILY Acetaminophen (Acetaminophen 325 Mg Tablet) 650 mg PO Q6H PRN PRN Reason: Fever/Mild Pain (1-3) Hydrocodone Bitart/Acetaminophen (Hydrocodone/Acet 5/325 Tablet) 1 tab PO Q4H PRN PRN Reason: Pain, Moderate (4-6) Atorvastatin Calcium (Atorvastatin 20 Mg Tablet) 40 mg PO DAILY [facility] Calcium Carbonate (Calcium Carbonate 500 Mg Tab) 1,000 mg PO Q4HR PRN PRN Reason: Dyspepsia Enoxaparin Sodium (Enoxaparin 40 Mg/0.4 Ml Syringe) 40 mg SUBCUT DAILY [facility] Hydrochlorothiazide (Hydrochlorothiazide 25 Mg Tablet) 25 mg PO DAILY [facility] Ketorolac Tromethamine (Ketorolac 30 Mg/Ml Vial) 30 mg IV Q6H PRN PRN Reason: Pain, Moderate (4-6) Stop: 07/09/24 19:59 Losartan Potassium (Losartan 50 Mg Tablet) 100 mg PO DAILY [facility] Morphine Sulfate (Morphine 4 Mg/Ml Inj) 3 mg IV Q2HR [facility] Last Admin: 07/04/24 21:45 Dose: Not Given Documented By: CHAMP Naloxone HCl (Naloxone 0.4 Mg/Ml Vial) 0.2 mg IV Q2MIN PRN PRN Reason: Opiate Reversal Ondansetron HCl (Ondansetron 4 Mg/2 Ml Inj) 4 mg IV Q8HR PRN PRN Reason: Nausea And Vomiting Discontinued Medications Aspirin (Aspirin 81 Mg Chew Tab) 324 mg PO NOW ONE Stop: 07/04/24 15:03 Last Admin: 07/04/24 15:42 Dose: Not Given Documented By: Sodium Chloride (Normal Saline 0.9%) 1,000 mls @ 1,000 mls/hr IV BOLUS ONE Stop: 07/04/24 18:49 Last Infusion: 07/04/24 19:34 Dose: Infused Documented By: Admin: 07/04/24 18:40 Dose: 1,000 mls/hr Documented By: Vital Signs Vital signs: Vital Signs - 8 hr 07/04/24 16:15 07/04/24 16:15 07/04/24 16:30 Pulse Rate 49 L 53 L Respiratory Rate 17 15 Blood Pressure 198/79 H Pulse Oximetry 94 97 07/04/24 16:30 07/04/24 16:45 07/04/24 16:45 Pulse Rate 62 Respiratory Rate 14 Blood Pressure 179/79 H 179/81 H Pulse Oximetry 96 07/04/24 17:00 07/04/24 17:00 07/04/24 17:16 Pulse Rate 59 L 59 L Respiratory Rate 14 13 Blood Pressure 159/72 H Pulse Oximetry 98 97 07/04/24 17:16 07/04/24 17:30 07/04/24 17:30 Pulse Rate 64 Respiratory Rate 19 Blood Pressure 162/77 H 175/85 H Pulse Oximetry 99 07/04/24 17:45 07/04/24 17:45 07/04/24 18:00 Pulse Rate 64 64 Respiratory Rate 17 25 H Blood Pressure 176/79 H Pulse Oximetry 97 98 07/04/24 18:01 07/04/24 18:01 07/04/24 18:15 Pulse Rate 64 Respiratory Rate 23 Blood Pressure 178/87 H 170/83 H Pulse Oximetry 99 07/04/24 18:15 07/04/24 18:30 07/04/24 18:30 Pulse Rate 59 L 57 L Respiratory Rate 14 15 Blood Pressure 168/79 H Pulse Oximetry 98 98 07/04/24 18:45 07/04/24 18:45 07/04/24 19:00 Pulse Rate 62 63 Respiratory Rate 18 18 Blood Pressure 174/96 H Pulse Oximetry 98 98 MDM - Syncope <Ham Eisenberg, - Last Filed: 07/04/24 17:49> Differential Diagnosis Differential diagnosis: Likely syncope due to orthostatic hypotension, vasovagal syncope, dehydration and other (Chest contusion, rib fracture) Lab Data 07/04/24 16:00 07/04/24 16:00 Labs: Lab Results 07/04/24 07/04/24 Range/Units 16:00 18:00 WBC 11.7 H (4.5-11.0) X10^3/uL RBC 4.06 L (4.5-5.9) X10^6/uL Hgb 12.6 L (13.5-17.5) g/dL Hct 37.8 L (41-53) % MCV 93.0 (80-100) fL MCH 31.0 (26-34) PG MCHC 33.4 (30-36) % RDW 13.9 (11.6-14.8) % Plt Count 207 (150-400) X10^3/uL Neut % (Auto) 83.4 H (50-75) % Lymph % (Auto) 10.3 L (25-40) % Pike % (Auto) 5.9 (3-14) % Eos % (Auto) 0.2 L (2-4) % Baso % (Auto) 0.2 (0-2) % Neut # (Auto) 9800 H (1966-4539) /uL Lymph # (Auto) 1200 (3661-5606) /uL Pike # (Auto) 700 (0-900) /uL Eos # (Auto) 0 (0-450) /uL Baso # (Auto) 0 (0-100) /uL PT 11.5 (9.4-12.5) SECONDS INR 1.0 (0.9-1.3) APTT 32 (25.1-36.5) SECONDS Sodium 141 (137-145) mmol/L Potassium 4.1 (3.4-5.1) mmol/L Chloride 107 (98-107) mmol/L Carbon Dioxide 23 (22-32) mmol/L BUN 25 H (9-20) mg/dL Creatinine 1.60 H (0.66-1.25) mg/dL Estimated GFR 44 L (>60) mL/min BUN/Creatinine Ratio 15.6 (6-22) Glucose 116 H (80-110) mg/dL Calcium 9.4 (8.4-10.2) mg/dL Magnesium 2.0 (1.6-2.3) mg/dL Total Bilirubin 0.7 (0.2-1.3) mg/dL AST 33 (17-59) IU/L ALT 26 (<50) IU/L Alkaline Phosphatase 96 (38-126) U/L Total Creatine Kinase 140 (55-170) U/L Troponin I 0.081 H 0.113 H (0.01-0.034) ng/mL NT-Pro-B Natriuret Pep 1850 H (<450) pg/mL Total Protein 7.4 (6.3-8.2) g/dL Albumin 4.3 (3.5-5.0) g/dL Globulin 3.1 (1.7-4.1) g/dL Albumin/Globulin Ratio 1.4 (1.0-2.8) Imaging Data CT scan - chest: Radiologist's Impression: [address] [address] [address] Scan Report Signed Patient: Peña Corrigan MR#: [id number] : 1945 Acct:[id number] Age/Sex: 79 / M Date of Service: 07/04/24 Loc: ED Accession Number: [id number] Procedure: CT chest wo con Ordering Provider: Ham Eisenberg D.O. PROCEDURE: CT CHEST WO CON INDICATIONS: blunt trauma to left anterior chest TECHNIQUE: Noncontrast 5 mm thick sections acquired from the pulmonary apices to the posterior costophrenic angles. 1 mm lung window, 5 mm thick coronal and sagittal and 7 mm axial MIP reformats were then acquired. For radiation dose reduction, the following was used: automated exposure control, adjustment of mA and/or kV according to patient size. COMPARISON: None. FINDINGS: Image quality: Diagnostic. Lower Neck: No enlarged lymph nodes. Thyroid: No thyroid nodules which require sonographic follow up, per consensus guidelines. Axillae: No enlarged lymph nodes. Chest Wall: Slight asymmetric prominence of the left chest wall musculature. Bones: Unremarkable. Lungs and Pleura: No pneumothorax or pleural effusions. No consolidation or suspicious nodules. Heart: Heart size is normal. No pericardial effusion. Thoracic Vessels: The aorta and pulmonary arteries demonstrate normal size. Mediastinum and Cande: No enlarged lymph nodes. Esophagus: No wall thickening. Mild hiatal hernia. Upper Abdomen: Visualized upper abdomen solid organs and bowel loops appear normal. IMPRESSION: Mild asymmetric prominence of the left chest wall musculature suggestive of edema/potential hematoma given history of trauma. No visualized underlying fracture. MDM Narrative Medical decision making narrative: Patient is a 79-year-old male history of CABG, hyperlipidemia, hypertension comes into the ED from home for evaluation of lightheaded dizziness and anterior left chest wall pain. States that he was shoveling when he started feeling lightheaded dizzy, states that he started to fall because of the dizziness, states that the shovel hit him into his left chest. It is now having some left anterior rib/chest pain. Not on any blood thinners. 1728: Patient was re-evaluated, he has not complaining of any new symptoms at this time, he has not having any shortness of breath states that he has not having any chest pain unless he moves or someone presses on his chest where the shovel hit him. Informed him that he had elevated troponins Patrizia hematoma near his chest wall which would be concerning for cardiac blunt trauma and will be needing to be transferred to higher level of care, he understands and agrees with this plan. Call placed out to Cardiology. 174: Discussed case with maintenance mechanic millwright Dr. Law, he states that patient does meet criteria for admission/observation for cardiac contusion given elevated troponin and history of blunt trauma to the chest with overlying chest wall ecchymosis. He states that at this point he does not require transfer at this time. Is recommending to trend the troponins until they peak, he states that if they start trending up would not recommend any additional interventions, however he states he would recommend getting an echo in the morning, would not recommend stress testing him given the fact that patient with cardiac contusion at this time. He states that he would recommend repeating a CT of the chest in a proximally 4 hours just to make sure that there is no expanding hematoma. 175: Had a discussion with hospitalist Dr. Ayon, he states he will see the patient in the emergency department <Perez Marquis, DO - Last Filed: 07/05/24 00:15> Lab Data Labs: Lab Results 07/04/24 07/04/24 Range/Units 16:00 18:00 WBC 11.7 H (4.5-11.0) X10^3/uL RBC 4.06 L (4.5-5.9) X10^6/uL Hgb 12.6 L (13.5-17.5) g/dL Hct 37.8 L (41-53) % MCV 93.0 (80-100) fL MCH 31.0 (26-34) PG MCHC 33.4 (30-36) % RDW 13.9 (11.6-14.8) % Plt Count 207 (150-400) X10^3/uL Neut % (Auto) 83.4 H (50-75) % Lymph % (Auto) 10.3 L (25-40) % Pike % (Auto) 5.9 (3-14) % Eos % (Auto) 0.2 L (2-4) % Baso % (Auto) 0.2 (0-2) % Neut # (Auto) 9800 H (5459-3139) /uL Lymph # (Auto) 1200 (7234-2182) /uL Pike # (Auto) 700 (0-900) /uL Eos # (Auto) 0 (0-450) /uL Baso # (Auto) 0 (0-100) /uL PT 11.5 (9.4-12.5) SECONDS INR 1.0 (0.9-1.3) APTT 32 (25.1-36.5) SECONDS Sodium 141 (137-145) mmol/L Potassium 4.1 (3.4-5.1) mmol/L Chloride 107 (98-107) mmol/L Carbon Dioxide 23 (22-32) mmol/L BUN 25 H (9-20) mg/dL Creatinine 1.60 H (0.66-1.25) mg/dL Estimated GFR 44 L (>60) mL/min BUN/Creatinine Ratio 15.6 (6-22) Glucose 116 H (80-110) mg/dL Calcium 9.4 (8.4-10.2) mg/dL Magnesium 2.0 (1.6-2.3) mg/dL Total Bilirubin 0.7 (0.2-1.3) mg/dL AST 33 (17-59) IU/L ALT 26 (<50) IU/L Alkaline Phosphatase 96 (38-126) U/L Total Creatine Kinase 140 (55-170) U/L Troponin I 0.081 H 0.113 H (0.01-0.034) ng/mL NT-Pro-B Natriuret Pep 1850 H (<450) pg/mL Total Protein 7.4 (6.3-8.2) g/dL Albumin 4.3 (3.5-5.0) g/dL Globulin 3.1 (1.7-4.1) g/dL Albumin/Globulin Ratio 1.4 (1.0-2.8) MDM Narrative Medical decision making narrative: Patient is a 79-year-old male history of CABG, hyperlipidemia, hypertension comes into the ED from home for evaluation of lightheaded dizziness and anterior left chest wall pain. States that he was shoveling when he started feeling lightheaded dizzy, states that he started to fall because of the dizziness, states that the shovel hit him into his left chest. It is now having some left anterior rib/chest pain. Not on any blood thinners. 1728: Patient was re-evaluated, he has not complaining of any new symptoms at this time, he has not having any shortness of breath states that he has not having any chest pain unless he moves or someone presses on his chest where the shovel hit him. Informed him that he had elevated troponins Patrizai hematoma near his chest wall which would be concerning for cardiac blunt trauma and will be needing to be transferred to higher level of care, he understands and agrees with this plan. Call placed out to Cardiology. 1745: Discussed case with maintenance mechanic millwright Dr. Law, he states that patient does meet criteria for admission/observation for cardiac contusion given elevated troponin and history of blunt trauma to the chest with overlying chest wall ecchymosis. He states that at this point he does not require transfer at this time. Is recommending to trend the troponins until they peak, he states that if they start trending up would not recommend any additional interventions, however he states he would recommend getting an echo in the morning, would not recommend stress testing him given the fact that patient with cardiac contusion at this time. He states that he would recommend repeating a CT of the chest in a proximally 4 hours just to make sure that there is no expanding hematoma. 1750: Had a discussion with hospitalist Dr. Ayon, he states he will see the patient in the emergency department Dr Marquis: Received turned over. Review patient's history and physical exam. Repeat troponin is slightly higher than initial however after discussions with Cardiology the plan would be for admission to the hospital and echocardiogram in the morning. Low suspicion for ACS. Repeat CT scan shows no signs of pulmonary embolism and no change in the chest wall contusion. I discussed the case with Dr. Otoole hospitalist on-call who will admit. Discussed the need for admission with the patient who expressed understanding and agreement with plan. Discharge Plan Departure Patient Disposition: Admitted as Observation Clinical Impression: Chest wall contusion, Syncope, Laceration of left wrist Admit Date/Time: 07/04/24 19:56 Admit Provider: Perez Otoole
--- NOTE | 2024-07-04 15:10 | DI.CT.S_ITS ---
PROCEDURE: CT HEAD/BRAIN WO CON INDICATIONS: syncope TECHNIQUE: Noncontrast 4.5 mm thick angled axial sections acquired from the foramen magnum to the vertex, with coronal and sagittal reformats. For radiation dose reduction, the following was used: automated exposure control, adjustment of mA and/or kV according to patient size. COMPARISON: [facility], CT, CT HEAD/BRAIN WO CON, 07/03/2018, 19:55. FINDINGS: Image quality: Diagnostic. CSF spaces: Basal cisterns are patent. No extra-axial fluid collections. The ventricles are symmetric in size and shape. Brain: No intracranial bleeds or masses. There is cerebral volume loss for age, with resultant ventricular and sulcal prominence. There are periventricular and deep white matter chronic small vessel ischemic changes. There is intracranial internal carotid artery atherosclerosis. Skull and face: Calvarium and visualized facial bones appear intact, without suspicious lesions. Sinuses: Visualized sinuses and mastoids are clear. IMPRESSION: 1. No acute intracranial process. 2. Moderate atrophy and chronic microvascular ischemic changes. Dictated by: Ana Lilia Barrios M.D. on 07/04/2024 at 16:28 Approved by: Ana Lilia Barrios M.D. on 07/04/2024 at 16:28
--- NOTE | 2024-07-04 15:10 | DI.CT.S_ITS ---
PROCEDURE: CT CHEST WO CON INDICATIONS: blunt trauma to left anterior chest TECHNIQUE: Noncontrast 5 mm thick sections acquired from the pulmonary apices to the posterior costophrenic angles. 1 mm lung window, 5 mm thick coronal and sagittal and 7 mm axial MIP reformats were then acquired. For radiation dose reduction, the following was used: automated exposure control, adjustment of mA and/or kV according to patient size. COMPARISON: None. FINDINGS: Image quality: Diagnostic. Lower Neck: No enlarged lymph nodes. Thyroid: No thyroid nodules which require sonographic follow up, per consensus guidelines. Axillae: No enlarged lymph nodes. Chest Wall: Slight asymmetric prominence of the left chest wall musculature. Bones: Unremarkable. Lungs and Pleura: No pneumothorax or pleural effusions. No consolidation or suspicious nodules. Heart: Heart size is normal. No pericardial effusion. Thoracic Vessels: The aorta and pulmonary arteries demonstrate normal size. Mediastinum and Cande: No enlarged lymph nodes. Esophagus: No wall thickening. Mild hiatal hernia. Upper Abdomen: Visualized upper abdomen solid organs and bowel loops appear normal. IMPRESSION: Mild asymmetric prominence of the left chest wall musculature suggestive of edema/potential hematoma given history of trauma. No visualized underlying fracture. Dictated by: Ana Lilia Barrios M.D. on 07/04/2024 at 16:59 Approved by: Ana Lilia Barrios M.D. on 07/04/2024 at 17:02
--- NOTE | 2024-07-04 15:11 | EKG_ITS ---
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
[2024-07-04 16:08] LABS: Add Manual Diff / Slide Review NO; Basophils Absolute Auto 0 /uL (0-100); Basophils Percent Auto 0.2 % (0-2); Eosinophils Absolute Auto 0 /uL (0-450); Eosinophils Percent Auto 0.2 % (2-4); Hematocrit 37.8 % (41-53); Hemoglobin 12.6 g/dL (13.5-17.5); Lymphocytes Absolute Auto 1200 /uL (1100-4500); Lymphocytes Percent Auto 10.3 % (25-40); Mean Corpuscular HGB Conc 33.4 % (30-36); Monocytes Absolute Auto 700 /uL (0-900); Monocytes Percent Auto 5.9 % (3-14); Neutrophils Absolute Auto 9800 /uL (1500-7000); Neutrophils Percent Auto 83.4 % (50-75); Platelet Count 207 X10^3/uL (150-400); Red Blood Cell Count 4.06 X10^6/uL (4.5-5.9); Red Cell Distribution Width 13.9 % (11.6-14.8); White Blood Cell Count 11.7 X10^3/uL (4.5-11.0)
[2024-07-04 16:15] LABS: Prothrombin Time 11.5 SECONDS (9.4-12.5)
[2024-07-04 16:18] LABS: PTT Partial Thromboplastin Tim 32 SECONDS (25.1-36.5)
[2024-07-04 16:19] LABS: Alanine Aminotransferase 26 IU/L (<50); Albumin 4.3 g/dL (3.5-5.0); Albumin Globulin Ratio 1.4 (1.0-2.8); Alkaline Phosphatase 96 U/L (38-126); Aspartate Aminotransferase 33 IU/L (17-59); BUN Creatinine Ratio 15.6 (6-22); Bilirubin Total 0.7 mg/dL (0.2-1.3); Blood Urea Nitrogen 25 mg/dL (9-20); Calcium 9.4 mg/dL (8.4-10.2); Carbon Dioxide 23 mmol/L (22-32); Chloride 107 mmol/L (98-107); Creatine Kinase 140 U/L (55-170); Estimated Glomerular Filt Rate 44 mL/min (>60); Globulin 3.1 g/dL (1.7-4.1); Glucose 116 mg/dL (80-110); HEMOLYSIS < 15 (0-50); Potassium 4.1 mmol/L (3.4-5.1); Sodium 141 mmol/L (137-145); Total Protein 7.4 g/dL (6.3-8.2)
[2024-07-04 16:31] LABS: NT-proBNP (BNP-Adult 18+) 1850 pg/mL (<450); Troponin I 0.081 ng/mL (0.01-0.034)
--- NOTE | 2024-07-04 18:17 | P.CALLCOV_ITS ---
Call Coverage Note Note Date of Patient Contact: 07/04/24 Time of Patient Contact: 18:17 Narrative of Care Provided: 79 M with PMH of CAD (prior CABG), HTN, HLD who presents after an episode of syncope. Patient reports he was shovelling for an hour approximately. He felt light headed, reached out to grab the shovel while feeling dizzy, then fell onto the shovel handle on his left side. He has some difficulty taking a deep breath in on the left side due to pain. He reports previous episodes of dizziness but no prior syncope, during these episodes he does report that he feels as if his heart stops beating. He denies palpitations, shortness of breath, LE edema, chest pain or dyspnea with exertion. 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 He is not taking his aspirin daily anymore. Labs are notable for mildly elevated troponin and proBNP. EKG is without obvious ischemic changes. CT shows a chest wall contusion / possible hematoma without pericardial effusion. Discussed with ER provider. Recommend repeat troponin, agree with ruling out PE as well with CT angio which can serve as repeat CT at 4 hours recommended by cardiology. This could be a cardiac contusion / blunt chest wall injury, though more worrisome causes of syncope including PE, ACS, and bradycardia require a bit more evaluation in the ER. If there is no large PE, no expanding hematoma on his chest wall, no notable bradycardia on telemetry while awaiting studies, and stabilizing troponins patient can be admitted for echocardiogram tomorrow morning here. Please re-discuss with night tele-hospitalist after repeat troponin and CTA are performed.
--- NOTE | 2024-07-04 18:19 | DI.CT.S_ITS ---
PROCEDURE: CT ANGIO CHEST PE PROTOCOL INDICATIONS: Syncope, follow up chest wall contusion TECHNIQUE: After the administration of intravenous contrast, 2 mm thick sections acquired from the pulmonary apices to the posterior costophrenic angles. 3-dimensional maximum intensity projection (MIP) coronal and sagittal reformats were then acquired through the thorax. For radiation dose reduction, the following was used: automated exposure control, adjustment of mA and/or kV according to patient size. COMPARISON: [facility], CR, XR CHEST 1 VIEW, 09/15/2022, 12:24. [facility], CT, CT CHEST WO CON, 07/04/2024, 15:39. FINDINGS: Image quality: Diagnostic. Pulmonary arteries: Pulmonary arteries are normal in size, and demonstrate no intraluminal filling defects to suggest central pulmonary embolism. Lower Neck: No enlarged lymph nodes. Thyroid: No thyroid nodules which require sonographic follow up, per consensus guidelines. Axillae: No enlarged lymph nodes. Chest Wall: Unremarkable. Mild prominence of the left pectoralis muscle possibly related to acute trauma. Bones: Unremarkable. Lungs and Pleura: No pneumothorax or pleural effusions. No consolidation or suspicious nodules. Heart: Heart size is normal. Remote CABG. Moderate to severe coronary artery calcifications. No pericardial effusion. Thoracic Vessels: No aortic aneurysm. Mediastinum and Cande: No enlarged lymph nodes. Esophagus: No wall thickening. No hiatal hernia. Upper Abdomen: Visualized upper abdomen solid organs and bowel loops appear normal. IMPRESSION: 1. No acute pulmonary emboli. 2. No acute pulmonary process. 3. Stable appearance of left pectoralis muscle, possibly indicating mild sequelae of acute trauma. 4. Coronary artery disease. Dictated by: Juan Knapp M.D. on 07/04/2024 at 19:29 Approved by: Juan Knapp M.D. on 07/04/2024 at 19:33
[2024-07-04 18:28] LABS: Troponin I 0.113 ng/mL (0.01-0.034)
[2024-07-04] MEDS: SODIUM CHLORIDE 0.9% 1,000 ML 1000 ML IV (18:40)
[2024-07-04 20:45] LABS: Troponin I 0.141 ng/mL (0.01-0.034)
[2024-07-05] VITALS (7 sets, daily range): BP systolic 129–162; BP diastolic 60–78; PULSE 58–64; RESP 15–22; TEMP 36.2–36.7; O2SAT 96–99
--- NOTE | 2024-07-05 00:06 | P.HP_ITS ---
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 He had to be helped up and then came to the ER for evaluation. Due to his heart history, he will be admitted for evaluation. He denies any difficulty with speech, vertigo, crushing pain in the chest, recent infection. He locates the pt in the ribs on lateral left side of the truck, pain with inspiration, no cough, no N/V/D. [facility] Medical History Coronary artery disease Hyperlipidemia Hypertension Social History Smoking Status: Former smoker Meds Home Medications and Allergies Home Medications Medication Instructions Recorded Confirmed Type atorvastatin 40 mg tablet 40 mg PO DAILY 07/04/24 07/04/24 History losartan 100 1 tab PO DAILY blood pressure 07/04/24 07/04/24 History mg-hydrochlorothiazide 25 mg tablet Allergies Allergy/AdvReac Type Severity Reaction Status Date / Time No Known Drug Allergies Allergy Verified 07/04/24 15:11 Exam Vital Signs (past 8 hours): - 07/04/24 16:15 07/04/24 16:15 07/04/24 16:30 Temperature Pulse Rate 49 L 53 L Respiratory Rate 17 15 Blood Pressure 198/79 H Pulse Oximetry 94 97 Oxygen Delivery Method Oxygen Flow Rate 07/04/24 16:30 07/04/24 16:45 07/04/24 16:45 Temperature Pulse Rate 62 Respiratory Rate 14 Blood Pressure 179/79 H 179/81 H Pulse Oximetry 96 Oxygen Delivery Method Oxygen Flow Rate 07/04/24 17:00 07/04/24 17:00 07/04/24 17:16 Temperature Pulse Rate 59 L 59 L Respiratory Rate 14 13 Blood Pressure 159/72 H Pulse Oximetry 98 97 Oxygen Delivery Method Oxygen Flow Rate 07/04/24 17:16 07/04/24 17:30 07/04/24 17:30 Temperature Pulse Rate 64 Respiratory Rate 19 Blood Pressure 162/77 H 175/85 H Pulse Oximetry 99 Oxygen Delivery Method Oxygen Flow Rate 07/04/24 17:45 07/04/24 17:45 07/04/24 18:00 Temperature Pulse Rate 64 64 Respiratory Rate 17 25 H Blood Pressure 176/79 H Pulse Oximetry 97 98 Oxygen Delivery Method Oxygen Flow Rate 07/04/24 18:01 07/04/24 18:01 07/04/24 18:15 Temperature Pulse Rate 64 Respiratory Rate 23 Blood Pressure 178/87 H 170/83 H Pulse Oximetry 99 Oxygen Delivery Method Oxygen Flow Rate 07/04/24 18:15 07/04/24 18:30 07/04/24 18:30 Temperature Pulse Rate 59 L 57 L Respiratory Rate 14 15 Blood Pressure 168/79 H Pulse Oximetry 98 98 Oxygen Delivery Method Oxygen Flow Rate 07/04/24 18:45 07/04/24 18:45 07/04/24 19:00 Temperature Pulse Rate 62 63 Respiratory Rate 18 18 Blood Pressure 174/96 H Pulse Oximetry 98 98 Oxygen Delivery Method Oxygen Flow Rate 07/04/24 20:04 07/04/24 21:00 07/04/24 21:13 Temperature 97.1 F L 98.4 F Pulse Rate 65 70 75 Respiratory Rate 18 18 18 Blood Pressure 135/78 169/85 H 171/85 H Pulse Oximetry 99 99 98 Oxygen Delivery Method Room Air Room Air Oxygen Flow Rate 0 Oxygen Delivery Method Room Air Oxygen Flow Rate 0 Narrative Exam Narrative: talking in full sentences, alert and oriented, Const General: cooperative, comfortable, well developed and other Chest Chest: tenderness and other (bruising) Resp Auscultation: clear to auscultation bilaterally Cardio Rate: regular rate Rhythm: regular rhythm Skin General: no rashes or lesions noted Neuro General: patient alert, patient awake and patient oriented x3 Objective Labs 07/04/24 16:00 07/04/24 16:00 Labs: Laboratory Results - last 24 hr 07/04/24 07/04/24 07/04/24 16:00 18:00 20:12 WBC 11.7 H RBC 4.06 L Hgb 12.6 L Hct 37.8 L MCV 93.0 MCH 31.0 MCHC 33.4 RDW 13.9 Plt Count 207 Neut % (Auto) 83.4 H Lymph % (Auto) 10.3 L [place] % (Auto) 5.9 Eos % (Auto) 0.2 L Baso % (Auto) 0.2 Neut # (Auto) 9800 H Lymph # (Auto) 1200 [place] # (Auto) 700 Eos # (Auto) 0 Baso # (Auto) 0 PT 11.5 INR 1.0 APTT 32 Sodium 141 Potassium 4.1 Chloride 107 Carbon Dioxide 23 BUN 25 H Creatinine 1.60 H Estimated GFR 44 L BUN/Creatinine Ratio 15.6 Glucose 116 H Calcium 9.4 Magnesium 2.0 Total Bilirubin 0.7 AST 33 ALT 26 Alkaline Phosphatase 96 Total Creatine Kinase 140 Troponin I 0.081 H 0.113 H 0.141 H* NT-Pro-B Natriuret Pep 1850 H Total Protein 7.4 Albumin 4.3 Globulin 3.1 Albumin/Globulin Ratio 1.4 Assessment & Plan Assessment & Plan narrative: I have discussed the pt's presenting symptoms, labs and imaging with the ER provider and agree with the decision for admission. 1. Chest wall contussion- CT scan which was repeated shows only bruising and hematoma of the left pectoralis muscle, no cardiac involvement. pain meds PRN ordered, PT/OT orderd to assess strength 2. Chest pain with elevated troponin- given his hx of CABG, will trend troponins. His labs have been reviewed by martin, Trop currently is 0.5, cardiology has been notified of the pt's condition and will be following, echo ordered for the morning. Derianitnue to monitor on telemetry. 3. CHF- chronic , does not appear to be in distress, elevated BNP, but we ahve reordered his home meds. will continue to monitor 4. CKD- appears to be at baseline, will need to monitor closely while in the hospital. Time-Based Coding :: [TOTAL MINUTES] spent with patient and on the chart (including review of chart, obtaining history, exam, reviewing outside data, placing orders, documenting exam and treatment plan, and counseling patient) on [DATE].
[2024-07-05 02:44] LABS: Add Manual Diff / Slide Review NO; Basophils Absolute Auto 100 /uL (0-100); Basophils Percent Auto 0.6 % (0-2); Eosinophils Absolute Auto 100 /uL (0-450); Eosinophils Percent Auto 0.9 % (2-4); Hematocrit 34.6 % (41-53); Lymphocytes Absolute Auto 2100 /uL (1100-4500); Lymphocytes Percent Auto 22.5 % (25-40); Mean Corpuscular HGB Conc 34.5 % (30-36); Mean Corpuscular Hemoglobin 31.9 PG (26-34); Mean Corpuscular Volume 92.3 fL (80-100); Monocytes Absolute Auto 900 /uL (0-900); Monocytes Percent Auto 9.2 % (3-14); Neutrophils Absolute Auto 6200 /uL (1500-7000); Neutrophils Percent Auto 66.8 % (50-75); Platelet Count 207 X10^3/uL (150-400); Red Blood Cell Count 3.75 X10^6/uL (4.5-5.9); Red Cell Distribution Width 13.5 % (11.6-14.8); White Blood Cell Count 9.2 X10^3/uL (4.5-11.0)
[2024-07-05 02:56] LABS: BUN Creatinine Ratio 15.9 (6-22); Blood Urea Nitrogen 23 mg/dL (9-20); Calcium 9.1 mg/dL (8.4-10.2); Carbon Dioxide 28 mmol/L (22-32); Chloride 103 mmol/L (98-107); Estimated Glomerular Filt Rate 49 mL/min (>60); Glucose 109 mg/dL (80-110); HEMOLYSIS < 15 (0-50); Potassium 3.6 mmol/L (3.4-5.1); Sodium 137 mmol/L (137-145)
[2024-07-05 03:16] LABS: Troponin I 0.196 ng/mL (0.01-0.034)
--- NOTE | 2024-07-05 05:59 | DI.ECHO.S_ITS ---
[facility] : : [address] : [place] : : [id number] : : Phone: [phone] Echocardiogram Report + + :Name: CRISTOFER ORDOÑEZ Study Date: 07/05/2024 Height: 70 in : :[facility] ReadingLocation: Weight: 195 lb : : Gender: Male BSA: 2.1 m2 : :: 1945 Age: 79 yrs BP: 142/72 mmHg: :Reason For Study: CHEST WALL CONTUSION : :Ordering Physician: TROY, : :MARY Garcia MD Performed By: Skyla Villatoro : :Referring: MARY SIMMONS MD : + + Interpretation Summary The ejection fraction is estimated to be 50-55%. There is akinesis along the basal infeior and inferolateral segments. There is hypokinesis to akinesis along the apical segments. There is hypokinesis along the anterolateral and mid inferolateral segments. There is no pericardial effusion. The aortic root is normal size. The dimensions of the ascending aorta are normal. The aortic arch is normal in size. The mitral valve is grossly normal. The aortic valve is grossly normal. Procedure: Images were not obtained from all of the standard acoustic windows due to the limited scope of the study. The study quality was technically adequate. There is no prior echocardiogram noted for this patient. The patient was in sinus bradycardia with heart rates between 58-62 bpm during the exam. Left Ventricle: The left ventricle is normal in size and wall thickness. The ejection fraction is estimated to be 50-55%. There is akinesis along the basal infeior and inferolateral segments. There is hypokinesis to akinesis along the apical segments. There is hypokinesis along the anterolateral and mid inferolateral segments. Mitral Valve: The mitral valve is grossly normal. Aortic Valve: The aortic valve is grossly normal. Great Vessels: The aortic root is normal size. The dimensions of the ascending aorta are normal. The aortic arch is normal in size. Pericardium/ Pleura There is no pericardial effusion. There is no pleural effusion. MMode/2D Measurements & Calculations LVIDd: 5.5 cm Ao root diam: 3.3 cm LVIDs: 4.3 cm asc Aorta Diam: 3.5 cm FS: 22.3 % Ao Arch Diam (Prox Trans): 3.2 cm EPSS: 0.38 cm IVSd: 1.1 cm LVPWd: 0.79 cm LV payan. diameter/BSA (cm/m^2): 2.7 LV sys. diameter/BSA (cm/m^2): 2.1 Reading Physician:08:08 AM
[2024-07-05 09:02] LABS: Troponin I 0.155 ng/mL (0.01-0.034)
--- NOTE | 2024-07-05 09:03 | DI.NM.S_ITS ---
PROCEDURE: NM KAN PERF SPECT R&S PHARM Rest and pharmacological stress myocardial perfusion SPECT with gated imaging and ejection fraction RADIOPHARMACEUTICAL: 27.5 mCi Tc-99m tetrafosmin IV at rest and 27.5 mCi Tc-99m tetrafosmin IV at peak effect of pharmacological stress. Jsx-phr-vcewyoec was performed. INDICATIONS: syncope, elev. trop, abnormal TTE TECHNIQUE: Radiopharmaceutical was injected at peak stress test, and also at rest. SPECT images were obtained. SPECT myocardial perfusion images were displayed in short axis, horizontal long axis, and vertical long axis views. Gated images were reviewed using Keywee software. COMPARISON: None. CARDIAC STRESS: A pharmacologic stress test was performed under the supervision of an attending staff, using an infusion of lexiscan 0.4mg IV X1. Hemodynamic data: There is normal blood pressure and heart rate response to pharmacologic stress. Symptoms: The patient denied anginal chest pain. Aminophylline: none EKG: Resting ECG showed sinus rhythm with mild horizontal ST depressions in the inferior and anterolateral leads. No diagnostic changes of ischemia with lexiscan; frequent PVCs with lexiscan. FINDINGS: Raw data: There is good myocardial uptake of radiotracer. No significant motion artifacts. Zthm-wb-gyewe ratio is 0.37 (normal is less than 0.38 for tetrafosmin tracer). Left ventricle function: Gated images demonstrate global hypokinesis that is worse at the apical cap. No transient ischemic dilation; TID is 0.94 (normal less than 1.3). Left ventricle resting end diastolic volume is 150mL. Left ventricle stress ejection fraction is 46%; normal range is above 45%. Myocardial perfusion: There are partially reversible defects in the inferior, lateral, distal anterior, and apical wright consistent with prior infarction and moderate jose-infarct ischemia. SSS 18, SRS. No prone imaging obtained due to shoulder and chest wall pain. IMPRESSION: Abnormal pharm nuclear stress test consistent with prior infarction and moderate jose-infarct ischemia 1) There are partially reversible defects in the inferior, lateral, distal anterior, and apical wright consistent with prior infarction and moderate jose-infarct ischemia. SSS 18, SRS. No prone imaging obtained due to shoulder and chest wall pain. 2) Enlarged left ventricle (resting EDV 150cc) with mildly reduced systolic function (EF post stress 46%). There is global hypokinesis that is worse at the apical cap. 3) No diagnostic ST changes with lexiscan. 4) No angina during the study. 5) No prior nuclear stress test available for comparison. Dictated by: Philip Law MD on 07/06/2024 at 13:41 Approved by: Philip Law MD on 07/06/2024 at 13:45
[2024-07-05] MEDS: ATORVASTATIN 20 MG TABLET 40 MG PO (09:21)
[2024-07-05] MEDS: LOSARTAN 50 MG TABLET 100 MG PO (09:21)
[2024-07-05] MEDS: ENOXAPARIN 40 MG/0.4 ML SYRINGE SUBCUT (09:21)
[2024-07-05] MEDS: hydroCHLOROthiazide 25 MG TABLET PO (09:21)
[2024-07-05] MEDS: ACETAMINOPHEN 325 MG TABLET 650 MG PO (09:22)
--- NOTE | 2024-07-05 09:22 | CM.DANOTE ---
Initial DCP Assessment Note Pt is a 79 yo male, resident of [facility], arrives after syncopal event and admitted OBS for further monitoring and work up. PCP: Juan R Pepe ([place]) Payer: MOON/[employer]omer Reviewed chart, met w/patient, his son (lives in [place]) and daughter Ryann. Patient lives independently with his daughter Ryann in an on the grid traditional home. Ryann is available to assist patient as needed. Patient's spouse three years ago after living many years with advancing Alz Dementia. 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 Patient and his late raised their children on [place]. Patient has a PCP located in [place] and a film historian located in [place] because of connections patient has on [place] (residents that are also physicians). Patient denies needs from this CM team, plans to discharge home with supportive family and close outpatient follow up with his PCP and Director Of Recreation Therapy. Patient is considering switching to a Director Of Recreation Therapy within the [facility] system in [facility]. No barriers identified at this time to patient's safe discharge home w/family to assist; close outpatient f/u recommended. CM team will plan to follow clinical course closely in case any DC needs or concerns arise. 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 No History Provided By Patient,Family Member,Medical Record Prior Living Arrangements House Household Members children Type of transporation used prior to Drives own vehicle admit Independent with ADL's Yes Is patient alert and oriented? Yes Barriers to Discharge No Discharge Plan Home Transportation Arrangement Family Referrals Initiated None needed
--- NOTE | 2024-07-05 12:25 | PM.PN.1 ---
Subjective Subjective Interval history: 79 M admitted with syncope, elevated troponin yesterday socorro a bit overnight. Downtrending this AM. Echo showed wall motion abnormalities. Discussed with cardiology, given trauma to the chest anticoagulation not recommended for possible NSTEMI, did recommend further eval with nuclear stress. Exam Vital Signs (past 8 hours): - 07/05/24 06:00 07/05/24 08:00 07/05/24 08:47 Temperature 97.7 F 97.9 F Pulse Rate 61 64 Respiratory Rate 18 15 Blood Pressure 148/68 H 135/67 Pulse Oximetry 96 98 Oxygen Delivery Method Room Air Oxygen Flow Rate 0 0 07/05/24 08:47 Temperature Pulse Rate Respiratory Rate Blood Pressure Pulse Oximetry 97 Oxygen Delivery Method Room Air Oxygen Flow Rate Oxygen Delivery Method Room Air Oxygen Flow Rate 0 Narrative Exam Narrative: Gen: no acute distress, WDWN CV: RRR no m/r/g Pulm: CTA b/l Abd: S NT ND Ext: no edema, strength +5/5 in all extremities, no deficits in sensation to light touch, no facial droop or slurred speech. Objective Labs 07/05/24 02:30 07/05/24 02:30 Labs: Laboratory Results - last 24 hr 07/04/24 07/04/24 07/04/24 16:00 18:00 20:12 WBC 11.7 H RBC 4.06 L Hgb 12.6 L Hct 37.8 L MCV 93.0 MCH 31.0 MCHC 33.4 RDW 13.9 Plt Count 207 Neut % (Auto) 83.4 H Lymph % (Auto) 10.3 L [place] % (Auto) 5.9 Eos % (Auto) 0.2 L Baso % (Auto) 0.2 Neut # (Auto) 9800 H Lymph # (Auto) 1200 [place] # (Auto) 700 Eos # (Auto) 0 Baso # (Auto) 0 PT 11.5 INR 1.0 APTT 32 Sodium 141 Potassium 4.1 Chloride 107 Carbon Dioxide 23 BUN 25 H Creatinine 1.60 H Estimated GFR 44 L BUN/Creatinine Ratio 15.6 Glucose 116 H Calcium 9.4 Magnesium 2.0 Total Bilirubin 0.7 AST 33 ALT 26 Alkaline Phosphatase 96 Total Creatine Kinase 140 Troponin I 0.081 H 0.113 H 0.141 H* NT-Pro-B Natriuret Pep 1850 H Total Protein 7.4 Albumin 4.3 Globulin 3.1 Albumin/Globulin Ratio 1.4 07/05/24 07/05/24 02:30 08:18 WBC 9.2 RBC 3.75 L Hgb 12.0 L Hct 34.6 L MCV 92.3 MCH 31.9 MCHC 34.5 RDW 13.5 Plt Count 207 Neut % (Auto) 66.8 Lymph % (Auto) 22.5 L [place] % (Auto) 9.2 Eos % (Auto) 0.9 L Baso % (Auto) 0.6 Neut # (Auto) 6200 Lymph # (Auto) 2100 [place] # (Auto) 900 Eos # (Auto) 100 Baso # (Auto) 100 PT INR APTT Sodium 137 Potassium 3.6 Chloride 103 Carbon Dioxide 28 BUN 23 H Creatinine 1.45 H Estimated GFR 49 L BUN/Creatinine Ratio 15.9 Glucose 109 Calcium 9.1 Magnesium Total Bilirubin AST ALT Alkaline Phosphatase Total Creatine Kinase Troponin I 0.196 H* 0.155 H* NT-Pro-B Natriuret Pep Total Protein Albumin Globulin Albumin/Globulin Ratio PFSH Medical History Coronary artery disease Hyperlipidemia Hypertension Social History household members: children Smoking Status: Former smoker Assessment & Plan Assessment & Plan narrative: 79 M with PMH of CAD (prior CABG), HTN, HLD who presents after an episode of syncope, with a chest wall contusion and possible NSTEMI 1. Chest wall contussion- - CT scan which was repeated shows only bruising and hematoma of the left pectoralis muscle. pain meds PRN ordered, PT/OT orderd to assess strength - possible cardiac involvement / contusion with elevated troponins but given syncope prior more concerning for NSTEMI. 2. NSTEMI, hx of CAD s/p CABG - troponin peaked this morning and now downtrended - limited echo with multiple areas of akinesis and hypokinesis. Discussed with flight crew scheduler today, recommended further evaluation with stress testing. Did not recommend anticoagulation given trauma, possibility of a possible cardiac contusion. - continue telemetry - Appears euvolemic, proBNP elevated but no symptoms other than chronic cough. 3. HTN - continue home medications, hold beta fransico prior to stress imaging. 4. HLD - continue home statin 4. CKD stage III- unknown baseline cr, stable today. Continue to follow with BMP Code: Full, surrogate is patient's daughter DVT: SCDs I have utilized all available immediate resources to obtain, update, or review the patient's current medications. Dispo: inpatient, disposition likely to home depending on mobility, or transfer depending on stress testing results. Additional history obtained via discussions with the ER provider, overnight hospitalist, and flight crew scheduler today. These discussions contributed to the creation of the above assessment and plan. I have reviewed patient's presenting documentation, labs, and imaging personally. Time-Based Coding :: [TOTAL MINUTES] spent with patient and on the chart (including review of chart, obtaining history, exam, reviewing outside data, placing orders, documenting exam and treatment plan, and counseling patient) on [DATE].
--- NOTE | 2024-07-05 12:39 | P.HP_ITS ---
History of Present Illness History of Present Illness Date Patient Seen: 07/05/24 Time Patient Seen: 12:39 Chief complaint: syncope, fall onto chest Narrative: 79 M with PMH of CAD (prior CABG), HTN, HLD who presents after an episode of syncope. Patient reports he was shovelling for an hour approximately. He felt light headed, reached out to grab the shovel while feeling dizzy, then fell onto the shovel handle on his left side. He has some difficulty taking a deep breath in on the left side due to pain. He reports previous episodes of dizziness but no prior syncope, during these episodes he does report that he feels as if his heart stops beating. He denies palpitations, shortness of breath, LE edema, chest pain or dyspnea with exertion. He has not seen his single pointed operator in [place] for >5 years. He is not taking his aspirin daily anymore. Labs were notable for mildly elevated troponin and proBNP. EKG is without obvious ischemic changes. CT shows a chest wall contusion / possible hematoma without pericardial effusion. From me yesterday: Discussed with ER provider. Recommend repeat troponin, agree with ruling out PE as well with CT angio which can serve as repeat CT at 4 hours recommended by cardiology. This could be a cardiac contusion / blunt chest wall injury, though more worrisome causes of syncope including PE, ACS, and bradycardia require a bit more evaluation in the ER. If there is no large PE, no expanding hematoma on his chest wall, no notable bradycardia on telemetry while awaiting studies, and stabilizing troponins patient can be admitted for echocardiogram tomorrow morning here. Please re-discuss with night tele-hospitalist after repeat troponin and CTA are performed. Interval updates: 79 M admitted with syncope, elevated troponin yesterday socorro a bit overnight. Downtrending this AM. Echo showed multiple wall motion abnormalities. Discussed with cardiology this morning, given trauma to the chest anticoagulation not recommended for possible NSTEMI, did recommend further eval with nuclear stress. [facility] Medical History Coronary artery disease Hyperlipidemia Hypertension Social History household members: children Smoking Status: Former smoker Meds Home Medications and Allergies Home Medications Medication Instructions Recorded Confirmed Type atorvastatin 40 mg tablet 40 mg PO DAILY 07/04/24 07/04/24 History losartan 100 1 tab PO DAILY blood pressure 07/04/24 07/04/24 History mg-hydrochlorothiazide 25 mg tablet Allergies Allergy/AdvReac Type Severity Reaction Status Date / Time No Known Drug Allergies Allergy Verified 07/04/24 15:11 Review of Systems Review of Systems Narrative: All other systems reviewed with the patient and are negative unless otherwise stated. Exam Vital Signs (past 8 hours): - 07/05/24 06:00 07/05/24 08:00 07/05/24 08:47 Temperature 97.7 F 97.9 F Pulse Rate 61 64 Respiratory Rate 18 15 Blood Pressure 148/68 H 135/67 Pulse Oximetry 96 98 Oxygen Delivery Method Room Air Oxygen Flow Rate 0 0 07/05/24 08:47 07/05/24 12:00 Temperature 97.2 F L Pulse Rate 61 Respiratory Rate 15 Blood Pressure 129/60 Pulse Oximetry 97 98 Oxygen Delivery Method Room Air Oxygen Flow Rate 0 Oxygen Delivery Method Room Air Oxygen Flow Rate 0 Narrative Exam Narrative: Gen: no acute distress, WDWN CV: RRR no m/r/g Pulm: CTA b/l Abd: S NT ND Ext: no edema, strength +5/5 in all extremities, no deficits in sensation to light touch, no facial droop or slurred speech. Objective Labs 07/05/24 02:30 07/05/24 02:30 Labs: Laboratory Results - last 24 hr 07/04/24 07/04/24 07/04/24 16:00 18:00 20:12 WBC 11.7 H RBC 4.06 L Hgb 12.6 L Hct 37.8 L MCV 93.0 MCH 31.0 MCHC 33.4 RDW 13.9 Plt Count 207 Neut % (Auto) 83.4 H Lymph % (Auto) 10.3 L Livingston % (Auto) 5.9 Eos % (Auto) 0.2 L Baso % (Auto) 0.2 Neut # (Auto) 9800 H Lymph # (Auto) 1200 Livingston # (Auto) 700 Eos # (Auto) 0 Baso # (Auto) 0 PT 11.5 INR 1.0 APTT 32 Sodium 141 Potassium 4.1 Chloride 107 Carbon Dioxide 23 BUN 25 H Creatinine 1.60 H Estimated GFR 44 L BUN/Creatinine Ratio 15.6 Glucose 116 H Calcium 9.4 Magnesium 2.0 Total Bilirubin 0.7 AST 33 ALT 26 Alkaline Phosphatase 96 Total Creatine Kinase 140 Troponin I 0.081 H 0.113 H 0.141 H* NT-Pro-B Natriuret Pep 1850 H Total Protein 7.4 Albumin 4.3 Globulin 3.1 Albumin/Globulin Ratio 1.4 07/05/24 07/05/24 02:30 08:18 WBC 9.2 RBC 3.75 L Hgb 12.0 L Hct 34.6 L MCV 92.3 MCH 31.9 MCHC 34.5 RDW 13.5 Plt Count 207 Neut % (Auto) 66.8 Lymph % (Auto) 22.5 L Livingston % (Auto) 9.2 Eos % (Auto) 0.9 L Baso % (Auto) 0.6 Neut # (Auto) 6200 Lymph # (Auto) 2100 Livingston # (Auto) 900 Eos # (Auto) 100 Baso # (Auto) 100 PT INR APTT Sodium 137 Potassium 3.6 Chloride 103 Carbon Dioxide 28 BUN 23 H Creatinine 1.45 H Estimated GFR 49 L BUN/Creatinine Ratio 15.9 Glucose 109 Calcium 9.1 Magnesium Total Bilirubin AST ALT Alkaline Phosphatase Total Creatine Kinase Troponin I 0.196 H* 0.155 H* NT-Pro-B Natriuret Pep Total Protein Albumin Globulin Albumin/Globulin Ratio Assessment & Plan Assessment & Plan narrative: 79 M with PMH of CAD (prior CABG), HTN, HLD who presents after an episode of syncope, with a chest wall contusion and possible NSTEMI 1. Left Chest wall contussion- ?- CT scan which was repeated shows only bruising and hematoma of the left pectoralis muscle. pain meds PRN ordered, PT/OT orderd to assess strength ?- possible cardiac involvement / contusion with elevated troponins but given syncope prior more concerning for NSTEMI. 2. NSTEMI, hx of CAD s/p CABG ?- troponin peaked this morning and now downtrended ?- limited echo with multiple areas of akinesis and hypokinesis. Discussed with single pointed operator today, recommended further evaluation with stress testing. Did not recommend anticoagulation given trauma, possibility of a possible cardiac contusion. ?- continue telemetry ?- Appears euvolemic, proBNP elevated but no symptoms other than chronic cough. 3. HTN ?- continue home medications, hold beta fransico prior to stress imaging. 4. HLD ?- continue home statin 5. CKD stage III- unknown baseline cr, stable today. Continue to follow with BMP Code: Full, surrogate is patient's daughter DVT: SCDs I have utilized all available immediate resources to obtain, update, or review the patient's current medications. Dispo: inpatient, disposition likely to home depending on mobility, or transfer depending on stress testing results. Additional history obtained via discussions with the ER provider, overnight hospitalist, and single pointed operator today. These discussions contributed to the creation of the above assessment and plan. I have reviewed patient's presenting documentation, labs, and imaging personally. Time-Based Coding :: [TOTAL MINUTES] spent with patient and on the chart (including review of chart, obtaining history, exam, reviewing outside data, placing orders, documenting exam and treatment plan, and counseling patient) on [DATE].
[2024-07-05] MEDS: DOCUSATE 100 MG CAPSULE PO (21:56)
[2024-07-05] MEDS: SENNOSIDES 8.6 MG TABLET 17.2 MG PO (21:56)
[2024-07-06] VITALS (7 sets, daily range): BP systolic 143–180; BP diastolic 62–87; PULSE 67–88; RESP 16–22; TEMP 36.1–36.6; O2SAT 94–100
[2024-07-06] MEDS: ATORVASTATIN 20 MG TABLET 40 MG PO (09:55)
[2024-07-06] MEDS: LOSARTAN 50 MG TABLET 100 MG PO (09:55)
[2024-07-06] MEDS: hydroCHLOROthiazide 25 MG TABLET PO (09:55)
[2024-07-06] MEDS: DOCUSATE 100 MG CAPSULE PO (09:55)
[2024-07-06] MEDS: ENOXAPARIN 40 MG/0.4 ML SYRINGE SUBCUT (09:55)
[2024-07-06 11:35] LABS: Add Manual Diff / Slide Review NO; Basophils Absolute Auto 0 /uL (0-100); Basophils Percent Auto 0.2 % (0-2); Eosinophils Absolute Auto 100 /uL (0-450); Eosinophils Percent Auto 0.9 % (2-4); Hematocrit 38.5 % (41-53); Hemoglobin 13.2 g/dL (13.5-17.5); Lymphocytes Absolute Auto 1600 /uL (1100-4500); Lymphocytes Percent Auto 18.6 % (25-40); Mean Corpuscular HGB Conc 34.3 % (30-36); Mean Corpuscular Hemoglobin 31.8 PG (26-34); Mean Corpuscular Volume 92.7 fL (80-100); Monocytes Absolute Auto 1000 /uL (0-900); Neutrophils Absolute Auto 6100 /uL (1500-7000); Neutrophils Percent Auto 69.3 % (50-75); Platelet Count 210 X10^3/uL (150-400); Red Blood Cell Count 4.15 X10^6/uL (4.5-5.9); Red Cell Distribution Width 13.7 % (11.6-14.8); White Blood Cell Count 8.8 X10^3/uL (4.5-11.0)
[2024-07-06 11:49] LABS: BUN Creatinine Ratio 20.1 (6-22); Blood Urea Nitrogen 32 mg/dL (9-20); Calcium 9.7 mg/dL (8.4-10.2); Carbon Dioxide 29 mmol/L (22-32); Chloride 103 mmol/L (98-107); Estimated Glomerular Filt Rate 44 mL/min (>60); Glucose 102 mg/dL (80-110); HEMOLYSIS < 15 (0-50); Potassium 4.7 mmol/L (3.4-5.1); Sodium 140 mmol/L (137-145)
--- NOTE | 2024-07-06 12:22 | PT-IP ANOTE ---
PT consult received. PT reviews chart and checks in pt room. Daughter and grand-daughter in room and pt is still down for testing. Con't PT efforts.
--- NOTE | 2024-07-06 14:51 | OT.IP.EVAL ---
Current Diagnoses Contusion of unspecified front wall of thorax, initial encounter (07/04/24) Past Medical History (Last Reviewed 04/19/21 @ 12:06 by Emanuel Meyers DO) Coronary artery disease Hyperlipidemia Hypertension Occupational Therapy Inpatient Evaluation/Re-Eval M1 PT/OT-IP Prior Functional Status Start: 07/06/24 12:14 Freq: NEEDED Status: Active Protocol: Document 07/06/24 14:25 [facility] (Rec: 07/06/24 14:51 [facility] [id number]) Medical Review Prior Functional Status Communication Pt states has word finding difficulty at times. Pt states had a CVA 3 years ago in which his whole right side not able to move and then after 5 days back to normal per pt. Mobility and Gait Pt independent with no devices . Activities of Daily Living and IADL's Pt was completely independent without a device. Social History Household Members children Living Arrangements House Number of Floors (Floors) One Floor Number of Stairs To Enter/Railing? 3 small steps with right rail. Home Environment Standard Height Toilet Home Equipment Four Wheel Walker,Die Maintenance,Sock Aid Additional Social History Comment Pt has a toilet paper aid in which her does not use. M2 OT-IP Current Condition Start: 07/06/24 14:24 Freq: Status: Active Protocol: Document 07/06/24 14:25 [facility] (Rec: 07/06/24 14:51 [facility] [id number]) Occupational Therapy Current Condition Current Condition Evaluation Date 07/06/24 Treatment Diagnosis Syncope, NSTEMI Diagnosis Onset Date 07/04/24 M3 OT- IP Subjective and Pain Start: 07/06/24 14:24 Freq: Status: Active Protocol: Document 07/06/24 14:25 [facility] (Rec: 07/06/24 14:51 [facility] [id number]) OT- Subjective Occupational Therapy Visit Type Type Initial Evaluation Visit Start Time 13:30 Visit Stop Time 14:25 Occupational Therapy Visit Comments Patient Comments Pt agreed to get up and his daughters present in the room. Patient/Caregiver Goals To go home. OT Pain Assessment Pain When Pain Assessed At Rest Pain Present Pain Present Pain Reported Location chest Description Pressure M4 OT- IP ADL's Start: 07/06/24 14:24 Freq: Status: Active Protocol: Document 07/06/24 14:25 [facility] (Rec: 07/06/24 14:51 [facility] [id number]) OT LHF-Niil-Wrxqxwu Comments OT Self-Feeding Comments Not at mealtime. OT ADL-Grooming Comments OT Grooming Comments Pt able to wash his hands while at the sink. OT ADL-Oral Care Comments Oral Care Comments Not performed. OT ADL-Dressing General Eval Lower Body Dressing Ability Standby Assistance Comments OT Dressing Comments Pt able to yuriy socks while seated with increased time. SBA for balance while yuriy/ doffing his brief. OT ADL-Toileting General Evaluation Toileting Ability Standby Assistance Comments OT Toileting Comments SBA for safety. Pt use on his legs on the back of the toilet to assist to stand from his balance. Suggested to his daughter best to provide at least supervision and assist as needed. OT ADL-Bathing Comments OT Bathing Comments Pt has a claw foot tub. Suggested to assist pt and get a shower chair if needed. M5 OT- IP IADL's Start: 07/06/24 14:24 Freq: Status: Active Protocol: Document 07/06/24 14:25 [facility] (Rec: 07/06/24 14:51 [facility] [id number]) OT-Instrumental Activities of Daily Living Deficits IADL Deficits Identified Deficits Home Safety Awareness Awareness of Need for Assistance at Home Good Awareness Home Safety Comments Pt aware that he is not to baseline. Medication Management Medication Management Comments Pt will benefit from at least supervision. Pt states at home forgets to take his meds on time and at times does not take the right amount. Money Management Money Management Comments Pt will benefit from supervision as not thinking well at this time. Meal Preparation Meal Preparation Caregiver Provides Assist Client Advocate Client Advocate Caregiver Provides Assist Driving Driving Concerns Identified Regarding Safety M6 OT- IP Functional Cognition Start: 07/06/24 14:24 Freq: Status: Active Protocol: Document 07/06/24 14:25 [facility] (Rec: 07/06/24 14:51 [facility] [id number]) Cognitive Factors Limiting Selfcare Function Cognitive Ability Level of Alertness Alert Patient Orientation Name,Age,Birthday,Month,Year, Place,Situation Attention Span Ability Capable of Focused Attention, Capable of Sustained Attention Ability to Follow Commands Able to Follow One Step Commands Memory Description Short Term Impaired Safety Awareness Underestimates Need for Assistance Executive Function Ability Unable to Remember Details Cognitive Tests SLUMS Pt scored 26/30 which implies normal for pt's education. Pt did not know the day of the week, able to recall 4/5 objects after time passed, and able to answer 3/4 questions right after paragraph read. Cognitive Comments Cognitive Assessment Comments Pt needing cues to slow down and vc for safety awareness. Pt tends to be quick to problem solve and move. Pt needing cues to think before answering questions too soon. OT- Vision and Hearing OT- Hearing Assessment OT- Hearing Assessment Hearing Impaired,Use of Hearing Aids OT- Vision Assessment Visual Acuity Glasses For Reading Visual Attentiveness WFL Occular Pursuits WFL Visual Convergence WFL Visual Chan WFL Vision Assessment Comments Pt appears to have nystagmus when looking to the right. Pt states has difficulty with his depth perception at times. M7 OT- IP Mobility and Balance Start: 07/06/24 14:24 Freq: Status: Active Protocol: Document 07/06/24 14:25 [facility] (Rec: 07/06/24 14:51 [facility] [id number]) OT-Transfer Assessment Sit to and From Stand Sit to and from Stand Standby Assistance,Contact Guard Assistance Transfers Transfer Ability Contact Guard Assistance Technique Transfer Destination Bed,Toilet Transfer Technique Stand Step Pivot Devices Transfer Assistive Devices Gait Belt,Front Wheeled Walker Comments Mobility Comments CGA to close SBA when coming to stand. VC for 4ww safety. Pt tends to ride the brakes when using the 4ww. Pt's would be safer with a FWW. OT- Balance Assessment Sitting Balance and Reactions Static Sitting Balance Ability Normal Dynamic Sitting Balance Ability Good Standing Balance and Reactions Static Standing Balance Ability Good Dynamic Standing Balance Ability Fair M8 OT- IP Objective Assessments Start: 07/06/24 14:24 Freq: Status: Active Protocol: Document 07/06/24 14:25 [facility] (Rec: 07/06/24 14:51 [facility] [id number]) OT Gross Range of Motion Upper Extremity Range of Motion ROM Impairments Grossly WFL OT Strength Comments Strength Comments WFL for needs. OT- Coordination Assessment Upper Extremity Finger to Nose Test Within Functional Limits OT-Muscle Tone Assessment Muscle Tone WNL Yes OT Sensation Assessment Comments Summary Comments Intact for light touch. Decreased for kinesthesia for bilateral hands. M9 OT- IP Assessment and Plan Start: 07/06/24 14:24 Freq: Status: Active Protocol: Document 07/06/24 14:25 [facility] (Rec: 07/06/24 14:51 [facility] [id number]) OT Summary Assessment and Plan Potential Rehabilitation Potential Good Analytic Complexity at Evaluation Moderate Summary OT Impairments Pain,Balance,Functional Cognition,Functional Mobility, Dressing,Toileting,Bathing, Toilet Transfers,Shower Transfers,Activity Tolerance Progress Towards Goals Progressing Toward Goals Assessment Summary Pt MOD complexity and here due to syncope, NSTEMI and now needing use of FWW/4WW for mobility needs and in a little unsteady on his feet. Pt needing cues for safety, and aware that he is not thinking well and will not drink. Pt wanting to go home and will have 24/7 assist and suggested pt have outpt PT for his dynamic balance needs. Goals Dressing Goal Independent Toileting Goal Independent Bathing Goal Independent Toilet Transfer Goal Independent Shower Transfer Goal Independent OT-Other Goals Golas based on no device used. Days to Meet Goals 15 Frequency of Treatment Other frequency 5x/week Treatment Plan OT Treatment Plan ADL Training,Functional Mobility,Patient/Family Education,Discharge Planning Other Treatment Recommendations and Next Standing ADl's. Treatment Focus Discharge Recommendations OT Discharge Recommendations Home with 24/7 Assist Available,Outpatient PT Home Equipment Needs FWW, shower chair Transportation Needs at Discharge Private Vehicle
--- NOTE | 2024-07-06 15:52 | DI.MRI.S_ITS ---
PROCEDURE: MR STROKE Pre- and post-contrast brain MRI, non-contrast brain MR angiogram, pre- and postcontrast neck MR angiogram INDICATIONS: cva TECHNIQUE: Brain: Noncontrast axial T1 spin echo, axial T2 fast spin echo, sagittal and axial FLAIR, coronal T2 fast spin echo, axial gradient echo, axial diffusion and ADC through the brain. After the administration of contrast, axial 3D VIBE of the cranial vasculature and brain. Brain MRA: Non-contrast 3-D time of flight MR angiogram, with multiple wzgpioo-peynfnkui-llamxcwifx (MIP) reformats performed. Neck MRA: Axial and sagittal TruFISP through the neck. Coronal dynamic MR angiogram during administration of contrast in the arterial and venous phases, with 3-dimenstional iwicctw-qvfanonsk-vafoqdvbwg (MIP) reformats constructed from subtraction images. COMPARISON: [facility], CT, CT HEAD/BRAIN WO CON, 07/04/2024, 15:39. FINDINGS: Image quality: There is difficulty with patient positioning and the standard head coils could not be used in this patient. There is associated compromised image quality. Motion artifact is also seen. Some imaging sequences were repeated. BRAIN: CSF spaces: Ventricles are normal in size and shape. Basal cisterns are patent. No extra-axial fluid collections. Brain: No intracranial bleeds or mass effects. Ribeiro-white matter interface is normal. Diffusion weighted images show no acute infarct. Brainstem appears normal. Normal intravascular flow voids are present. No abnormal intracranial enhancement. Skull and face: Calvarial marrow signal is normal. Orbits appear normal. Sinuses: Sinuses and mastoids are clear. BRAIN MR ANGIOGRAM: Anterior circulation: Intracranial internal carotid arteries are normal in size and enhancement. The flow within the paired anterior cerebral arteries is normal and symmetric. The flow within the middle cerebral arteries is normal and symmetric. The anterior communicating artery is seen. No stenoses, occlusions, or aneurysms. Posterior circulation: The visualized portions of the vertebral arteries demonstrate normal caliber, and join to form a normal appearing basilar artery. The flow within the posterior cerebral arteries is normal and symmetric. No stenoses, occlusions, or aneurysms. NECK MR ANGIOGRAM: Carotids: Great vessels demonstrate a conventional anatomy as they arise from the aortic arch. The origins of the common carotid arteries appear patent. The calibers of both common carotid arteries are normal. There is tortuosity seen of the common carotid arteries. The bifurcation regions appear normal bilaterally. The internal carotid arteries demonstrate normal course and caliber. Posterior circulation: The origins of the vertebral arteries appear patent. More superior portions of both vertebral arteries demonstrate normal course and caliber, and join to form a normal appearing basilar artery. Miscellaneous: Subclavian arteries appear patent. Pre-contrast images through the neck show no soft tissue abnormalities. IMPRESSION: This is a highly limited study. BRAIN MRI: No findings of acute or subacute infarction can be seen, to the limits of this study. BRAIN MR ANGIOGRAM: To the limits of this study, no significant intracranial arterial abnormality can be seen. NECK MR ANGIOGRAM: Within the arteries of the neck, no hemodynamically significant stenosis can be seen. Dictated by: Elvis Patrick M.D. on 07/07/2024 at 10:13 Approved by: Elvis Patrick M.D. on 07/07/2024 at 10:16
--- NOTE | 2024-07-06 16:00 | PT.IIE ---
Current Diagnoses Contusion of unspecified front wall of thorax, initial encounter (07/04/24) Medical History (Last Reviewed 04/19/21 @ 12:06 by Emanuel Meyers DO) Coronary artery disease Hyperlipidemia Hypertension Physical Therapy Inpatient Evaluation/Re-Eval M1 PT/OT-IP Prior Functional Status Start: 07/06/24 12:14 Freq: NEEDED Status: Active Protocol: Document 07/06/24 15:50 [facility] (Rec: 07/06/24 16:00 [facility] [id number]) Medical Review Prior Functional Status Medical History Reviewed Yes Communication Pt states has word finding difficulty at times. Pt states had a CVA 3 years ago in which his whole right side not able to move and then after 5 days back to normal per pt. Mobility and Gait Pt independent with no devices . Activities of Daily Living and IADL's Pt was completely independent without a device. Social History Household Members children Living Arrangements House Number of Floors (Floors) One Floor Number of Stairs To Enter/Railing? 3 small steps with right rail. Home Environment Standard Height Toilet Home Equipment Four Wheel Walker,Steward/Stewardess Lounge,Sock Aid Additional Social History Comment Pt has a toilet paper aid in which her does not use. M2 PT-IP Current Condition Start: 07/06/24 12:14 Freq: NEEDED Status: Active Protocol: Document 07/06/24 15:50 [facility] (Rec: 07/06/24 16:00 [facility] [id number]) Physical Therapy Current Condition Current Condition Evaluation Date 07/06/24 Treatment Diagnosis L chest contusion, NSTEMI, weakness M3 PT-IP Subjective Start: 07/06/24 12:14 Freq: NEEDED Status: Active Protocol: Document 07/06/24 15:50 [facility] (Rec: 07/06/24 16:00 [facility] [id number]) Subjective Physical Therapy Visit Type Type Initial Evaluation Visit Start Time 15:10 Visit Stop Time 15:38 Number of CRIB TENDER Visits 0 M4 PT-IP Mobility and Gait Start: 07/06/24 12:14 Freq: NEEDED Status: Active Protocol: Document 07/06/24 15:50 [facility] (Rec: 07/06/24 16:00 [facility] [id number]) PT-Transfer Assessment Sit to and From Stand Sit to and from Stand Contact Guard Assistance,Use of Upper Extremities Equipment Transfer Assistive Device Gait Belt,4 Wheeled Walker Comments Mobility Comments sit to stand from chair CGA w/ cues for breaks set first. Amb w/4WW CGA 200ft w/cues to inc step length. up/down stairs step to w/Brails. Left w/call light in reach and chair alarm on Gait Assessment Gait Gait Assistance Required: Contact Guard Assist Distance (Feet) 200 Assistive Devices Assistive Device 4 Wheeled Walker Gait Deviations General Gait Pattern Decreased Stride Length, Decreased Feet Clearance Factors Limiting Gait Function Factors Limiting Gait Function Decreased Activity Tolerance, Decreased Strength, Incoordination,Poor Balance Stair Climbing Assessment Evaluation Level of Assist On Stairs Contact Guard Assistance Devices Stair Climbing Assistive Devices Left Railing,Right Railing Technique/Endurance Stair Climbing Direction Ascend and Descend Stair Climbing Technique Step to Step Number of Steps Climbed 4 Query Text: M5 PT-IP Objective Assessments Start: 07/06/24 12:14 Freq: NEEDED Status: Active Protocol: Document 07/06/24 15:50 [facility] (Rec: 07/06/24 16:00 [facility] [id number]) Orientation Orientation/Cognition Level of Alertness Alert Safety Awareness Understands Safety Issues Strength Lower Extremity Strength Hip 4/5 grossly Knee 4+/5 Ankle 5/5 M6 PT-IP Treatment Start: 07/06/24 12:14 Freq: NEEDED Status: Active Protocol: Document 07/06/24 15:50 [facility] (Rec: 07/06/24 16:00 [facility] [id number]) Physical Therapy Treatment Education Education Provided Safety M7 PT-IP Assessment and Plan Start: 07/06/24 12:14 Freq: NEEDED Status: Active Protocol: Document 07/06/24 15:50 [facility] (Rec: 07/06/24 16:00 [facility] [id number]) PT Summary Assessment and Plan Potential Rehabilitation Potential Excellent Status of Condition at Evaluation Stable Summary Impairments Strength,Balance,Coordination, Transfers,Gait Assessment Summary Pt presents 2 days after fall onto shovel handle on L ribcage w/o major injury and is feeling like he did after his first stroke years ago but feeling like he is improving. He has some overall dec balance and hip weakness B, but appears to be moving better than was when worked with OT earlier today. He is able to improve gait w/cues. Pt would benefit from skilled PT to improve gait, balance and strength. Goals Bed Mobility Goal Independent Transfer Goal Independent Gait Goal Standby Assistance Gait Distance 300ft w/LRAD Other Goals Pt will be able to go up/down stairs w/1 rail SBA Days to Meet Goals 5 Frequency of Treatment Frequency Of Treatment Once a Day Treatment Plan Physical Therapy Treatment Plan Bed Mobility Training,Transfer Training,Gait Training, Therapeutic Exercise,Balance Retraining,Neuromuscular Re-ed ,Coordination Retraining Other Recommendations and Next Treatment gait mechanics and brake use w Focus /4WW, stairs w/1 rail, balance Recommendations To Nursing Amount of Assist Needed 1 Person Assist Discharge Recommendations PT Discharge Recommendations Home with Assistance, Outpatient PT Transportation Needs at Discharge Private Vehicle
--- NOTE | 2024-07-06 17:22 | PM.PN.1 ---
Subjective Subjective Date Patient Seen: 07/06/24 Time Patient Seen: 09:20 Interval history: 79 M with PMH of CAD (prior CABG), HTN, HLD who presents after an episode of syncope. Patient reports he was shovelling for an hour approximately. He felt light headed, reached out to grab the shovel while feeling dizzy, then fell onto the shovel handle on his left side. He has some difficulty taking a deep breath in on the left side due to pain. He reports previous episodes of dizziness but no prior syncope, during these episodes he does report that he feels as if his heart stops beating. He denies palpitations, shortness of breath, LE edema, chest pain or dyspnea with exertion. 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 He is not taking his aspirin daily anymore. Labs were notable for mildly elevated troponin and proBNP. EKG is without obvious ischemic changes. CT shows a chest wall contusion / possible hematoma without pericardial effusion. Discussed with ER provider. Recommend repeat troponin, agree with ruling out PE as well with CT angio which can serve as repeat CT at 4 hours recommended by cardiology. This could be a cardiac contusion / blunt chest wall injury, though more worrisome causes of syncope including PE, ACS, and bradycardia require a bit more evaluation in the ER. If there is no large PE, no expanding hematoma on his chest wall, no notable bradycardia on telemetry while awaiting studies, and stabilizing troponins patient can be admitted for echocardiogram tomorrow morning here. Please re-discuss with night tele-hospitalist after repeat troponin and CTA are performed. Interval history: The patient states that he does not feel the problem is with his heart, rather his balance and fall seemed more like a mild stroke. 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 Exam Vital Signs (past 8 hours): - 07/06/24 09:55 07/06/24 12:00 Temperature 97.5 F L Pulse Rate 88 Respiratory Rate 16 Blood Pressure 161/82 H 180/87 H Pulse Oximetry 98 Oxygen Flow Rate 0 Oxygen Delivery Method Room Air Oxygen Flow Rate 0 Narrative Exam Narrative: Gen: no acute distress, WDWN CV: RRR no m/r/g Pulm: CTA b/l Abd: S NT ND Ext: no edema, strength +5/5 in all extremities, no deficits in sensation to light touch, no facial droop or slurred speech. Mild right beating nystagmus with right lateral gaze. Objective Imaging Nuclear medicine stress test: : Radiologist's impression: Abnormal pharm nuclear stress test consistent with prior infarction and moderate jose-infarct ischemia 1) There are partially reversible defects in the inferior, lateral, distal anterior, and apical wright consistent with prior infarction and moderate jose-infarct ischemia. SSS 18, SRS. No prone imaging obtained due to shoulder and chest wall pain. 2) Enlarged left ventricle (resting EDV 150cc) with mildly reduced systolic function (EF post stress 46%). There is global hypokinesis that is worse at the apical cap. 3) No diagnostic ST changes with lexiscan. 4) No angina during the study. 5) No prior nuclear stress test available for comparison. Labs 07/06/24 11:05 07/06/24 11:05 Labs: Laboratory Results - last 24 hr 07/06/24 11:05 WBC 8.8 RBC 4.15 L Hgb 13.2 L Hct 38.5 L MCV 92.7 MCH 31.8 MCHC 34.3 RDW 13.7 Plt Count 210 Neut % (Auto) 69.3 Lymph % (Auto) 18.[address] [place] % (Auto) 11.0 Eos % (Auto) 0.9 L Baso % (Auto) 0.2 Neut # (Auto) 6100 Lymph # (Auto) 1600 [place] # (Auto) 1000 H Eos # (Auto) 100 Baso # (Auto) 0 Sodium 140 Potassium 4.7 Chloride 103 Carbon Dioxide 29 BUN 32 H Creatinine 1.59 H Estimated GFR 44 L BUN/Creatinine Ratio 20.1 Glucose 102 Calcium 9.7 Troponin I 0.060 H PFSH Medical History Coronary artery disease Hyperlipidemia Hypertension Social History household members: children Smoking Status: Former smoker Assessment & Plan Assessment & Plan narrative: 79 M with PMH of CAD (prior CABG), HTN, HLD who presents after an episode of syncope, with a chest wall contusion and possible NSTEMI 1. Syncope: -etiology unclear though unlikely cardiac -obtain stroke protocol brain MRI for further evaluation 2. Left Chest wall contusion- ?- CT scan which was repeated shows only bruising and hematoma of the left pectoralis muscle. pain meds PRN ordered, PT/OT orderd to assess strength ?- possible cardiac involvement / contusion with elevated troponins. 3. NSTEMI, hx of CAD s/p CABG ?- troponin peaked and return to normal ?- limited echo with multiple areas of akinesis and hypokinesis, with reversible ischemia seen on his stress test - Discussed with technical sales engineer today, recommended outpatient cardiac evaluation - unlikely to represent the cause of his syncopal episode ?- Appears euvolemic, proBNP elevated but no symptoms other than chronic cough. 4. HTN ?- continue home medications, hold beta fransico prior to stress imaging. 5. HLD ?- continue home statin 6. CKD stage III- unknown baseline cr, stable today. Continue to follow with BMP Code: Full, surrogate is patient's daughter DVT: SCDs Dispo: inpatient, disposition likely to home depending on mobility, or transfer depending on stress testing results. Time-Based Coding :: [TOTAL MINUTES] spent with patient and on the chart (including review of chart, obtaining history, exam, reviewing outside data, placing orders, documenting exam and treatment plan, and counseling patient) on [DATE]. PROFEE Charge codes Subsequent inpatient/observation care: [id number]
[2024-07-07] VITALS: BP 138/69; PULSE 69; RESP 20; TEMP 36.3; O2SAT 94
[2024-07-07 04:00] VITALS: BP 128/74; PULSE 74; RESP 20; TEMP 36.6; O2SAT 100
[2024-07-07 08:00] VITALS: BP 137/72; PULSE 85; RESP 17; TEMP 36.4; O2SAT 94
[2024-07-07 08:56] VITALS: BP 137/72; PULSE 69
[2024-07-07] MEDS: ATORVASTATIN 20 MG TABLET 40 MG PO (08:56)
[2024-07-07] MEDS: LOSARTAN 50 MG TABLET 100 MG PO (08:56)
[2024-07-07] MEDS: hydroCHLOROthiazide 25 MG TABLET PO (08:56)
[2024-07-07] MEDS: ENOXAPARIN 40 MG/0.4 ML SYRINGE SUBCUT (08:57)
--- NOTE | 2024-07-07 11:05 | PT.IPTN ---
Current Diagnoses Contusion of unspecified front wall of thorax, initial encounter (07/04/24) Physical Therapy Treatment Note M2 PT-IP Current Condition Start: 07/06/24 12:14 Freq: NEEDED Status: Active Protocol: Document 07/06/24 15:50 [facility] (Rec: 07/06/24 16:00 [facility] [id number]) Physical Therapy Current Condition Current Condition Evaluation Date 07/06/24 Treatment Diagnosis L chest contusion, NSTEMI, weakness M3 PT-IP Subjective Start: 07/06/24 12:14 Freq: NEEDED Status: Active Protocol: Document 07/07/24 11:05 [facility] (Rec: 07/07/24 12:35 [facility] [id number]) Subjective Physical Therapy Visit Type Type Treatment Note Visit Start Time 11:05 Visit Stop Time 11:35 Number of PROGRAM INSTRUCTOR Visits 0 Physical Therapy Visit Comments Patient Comments agreeable to do PT Therapy Pain Assessment Pain When Pain Assessed At Rest Pain Present Pain Present Pain Reported Location chest Intensity 2 Scale Used Numeric (0 - 10) Pain Management Techniques Distraction,Modification of Treatment,Re-positioning M4 PT-IP Mobility and Gait Start: 07/06/24 12:14 Freq: NEEDED Status: Active Protocol: Document 07/07/24 11:05 [facility] (Rec: 07/07/24 12:35 [facility] [id number]) PT-Transfer Assessment Sit to and From Stand Sit to and from Stand Contact Guard Assistance,1 Person Assistance,Use of Upper Extremities Equipment Transfer Assistive Device Gait Belt,4 Wheeled Walker Orthotic/Prosthetic Devices or Brace: No Comments Mobility Comments pt sitting on the chair. family in room. BP monitored. BP seated: 112/65 pt completed wit to stand CGA and was able to stand SBA to CGA using 4WW for support. BP checked: 105/64. no c/o dizziness/lightheadedness. pt stand for ~ 2 more minutes. BP checked again: 115/67. pt agreed to ambulate and completed ~ 200 ft using 4WW CGA with (+) LOB x 1 with recovery needing CGA for safety. pt presents with shuffling gait. pt ambulated back to his room and sat back on the chair. BP checked: 123 /78. Assessed pt's ambulation without AD and completed ~ 8 ft min to mod A and max cues. presents with unsteady shuffling gait. family stated that they can get a 4WW for pt to use. postioned pt on the chair. call light and table placed within reach. Left pt with family in room. informed nurse regarding BP. Gait Assessment Gait Gait Assistance Required: Contact Guard Assist,1 Person Assist Distance (Feet) 200 Able to Maintain Weight Bearing Status Yes During Gait Assistive Devices Assistive Device Gait Belt,4 Wheeled Walker Orthotic/Prosthetic Devices or Brace: No Gait Deviations General Gait Pattern Decreased Stride Length, Decreased Feet Clearance,Step- to Gait Factors Limiting Gait Function Factors Limiting Gait Function Decreased Activity Tolerance, Decreased Strength,Limited Range of Motion,Pain,Poor Balance,Poor Safety Awareness M5 PT-IP Objective Assessments Start: 07/06/24 12:14 Freq: NEEDED Status: Active Protocol: Document 07/06/24 15:50 [facility] (Rec: 07/06/24 16:00 [facility] [id number]) Orientation Orientation/Cognition Level of Alertness Alert Safety Awareness Understands Safety Issues Strength Lower Extremity Strength Hip 4/5 grossly Knee 4+/5 Ankle 5/5 M6 PT-IP Treatment Start: 07/06/24 12:14 Freq: NEEDED Status: Active Protocol: Document 07/07/24 11:05 [facility] (Rec: 07/07/24 12:35 [facility] [id number]) Physical Therapy Treatment Education Education Provided Safety M7 PT-IP Assessment and Plan Start: 07/06/24 12:14 Freq: NEEDED Status: Active Protocol: Document 07/07/24 11:05 [facility] (Rec: 07/07/24 12:35 [facility] [id number]) PT Summary Assessment and Plan Potential Rehabilitation Potential Fair Summary Impairments Pain,ROM,Strength,Balance, Coordination,Sensation,Tone, Cognition,Bed Mobility, Transfers,Gait,Activity Tolerance Progress Towards Goals Slow Progress due to Medical Issues,Slow Progress due to Activity Tolerance Assessment Summary pt requiring CGA with mobility using 4WW and will have his family to assist him at home. pt may go home when medically stable with family to assist and will benefit from HHPT vs outpt PT. will continue PT in hospital to improve overall strength and mobiltiy independence. Goals Bed Mobility Goal Independent Transfer Goal Independent Gait Goal Standby Assistance Gait Distance 300ft w/LRAD Other Goals Pt will be able to go up/down stairs w/1 rail SBA Days to Meet Goals 10 Frequency of Treatment Frequency Of Treatment Once a Day Treatment Plan Physical Therapy Treatment Plan Bed Mobility Training,Transfer Training,Gait Training, Therapeutic Exercise,Balance Retraining,Neuromuscular Re-ed ,Coordination Retraining Other Recommendations and Next Treatment gait mechanics and brake use w Focus /4WW, stairs w/1 rail, balance Recommendations To Nursing Amount of Assist Needed 1 Person Assist Discharge Recommendations PT Discharge Recommendations Home with Assistance,Home Health,Outpatient PT Transportation Needs at Discharge Private Vehicle
[2024-07-07 12:00] VITALS: BP 117/71; PULSE 68; RESP 18; TEMP 36.4; O2SAT 97
--- NOTE | 2024-07-07 15:09 | OT.IP.TRT ---
Current Diagnoses Contusion of unspecified front wall of thorax, initial encounter (07/04/24) Occupational Therapy Treatment Note M2 OT-IP Current Condition Start: 07/06/24 14:24 Freq: Status: Active Protocol: Document 07/06/24 14:25 [facility] (Rec: 07/06/24 14:51 [facility] [id number]) Occupational Therapy Current Condition Current Condition Evaluation Date 07/06/24 Treatment Diagnosis Syncope, NSTEMI Diagnosis Onset Date 07/04/24 M3 OT- IP Subjective and Pain Start: 07/06/24 14:24 Freq: Status: Active Protocol: Document 07/07/24 15:19 [facility] (Rec: 07/07/24 15:24 [facility] [id number]) OT- Subjective Occupational Therapy Visit Type Type Treatment Note Visit Start Time 15:10 Visit Stop Time 15:19 Occupational Therapy Visit Comments Patient Comments Pt wanting to go home and not open to acute rehab as hospitalist suggested. Patient/Caregiver Goals TO go home. M5 OT- IP IADL's Start: 07/06/24 14:24 Freq: Status: Active Protocol: Document 07/06/24 14:25 [facility] (Rec: 07/06/24 14:51 [facility] [id number]) OT-Instrumental Activities of Daily Living Deficits IADL Deficits Identified Deficits Home Safety Awareness Awareness of Need for Assistance at Home Good Awareness Home Safety Comments Pt aware that he is not to baseline. Medication Management Medication Management Comments Pt will benefit from at least supervision. Pt states at home forgets to take his meds on time and at times does not take a right amount. Money Management Money Management Comments Pt will benefit from supervision as not thinking well at this time. Meal Preparation Meal Preparation Caregiver Provides Assist Barrel Leveler Barrel Leveler Caregiver Provides Assist Driving Driving Concerns Identified Regarding Safety M6 OT- IP Functional Cognition Start: 07/06/24 14:24 Freq: Status: Active Protocol: Document 07/07/24 15:19 [facility] (Rec: 07/07/24 15:24 [facility] [id number]) Cognitive Factors Limiting Selfcare Function Cognitive Ability Level of Alertness Alert Patient Orientation Name,Age,Birthday,Month,Year, Place,Situation Attention Span Ability Capable of Focused Attention, Capable of Sustained Attention Safety Awareness Underestimates Need for Assistance Cognitive Comments Cognitive Assessment Comments Pt insists that he wants to go home even though he feels that his overall function is 3 /10 from prior level of independence of working on the job site, driving,etc. Pt's daughter feel comfortable and has all equipment needs from her mom passing 3 years ago. M8 OT- IP Objective Assessments Start: 07/06/24 14:24 Freq: Status: Active Protocol: Document 07/06/24 14:25 [facility] (Rec: 07/06/24 14:51 [facility] [id number]) OT Gross Range of Motion Upper Extremity Range of Motion ROM Impairments Grossly WFL OT Strength Comments Strength Comments WFL for needs. OT- Coordination Assessment Upper Extremity Finger to Nose Test Within Functional Limits OT-Muscle Tone Assessment Muscle Tone WNL Yes OT Sensation Assessment Comments Summary Comments Intact for light touch. Decreased for kinesthesia for bilateral hands. M9 OT- IP Assessment and Plan Start: 07/06/24 14:24 Freq: Status: Active Protocol: Document 07/07/24 15:19 [facility] (Rec: 07/07/24 15:24 [facility] [id number]) OT Summary Assessment and Plan Potential Rehabilitation Potential Good Analytic Complexity at Evaluation Moderate Summary Progress Towards Goals Progressing Toward Goals Assessment Summary Pt still unsteady on his feet and insisting on going home versus have any rehab- whether it be outpt rehab versus acute rehab. Pt to go home with his family to assist 12/04 . Goals Dressing Goal Independent Toileting Goal Independent Bathing Goal Independent Toilet Transfer Goal Independent Shower Transfer Goal Independent OT-Other Goals Goals based on no devices used . Days to Meet Goals 15 Frequency of Treatment Other frequency 5x/week Treatment Plan OT Treatment Plan ADL Training,Functional Mobility,Patient/Family Education,Discharge Planning Other Treatment Recommendations and Next Standing ADl's. Treatment Focus Discharge Recommendations OT Discharge Recommendations Home with 12/04 Assist Available Other Discharge Recommendations Pt not wanting acute rehab or outpt rehab at this time. Home Equipment Needs FWW, shower chair Transportation Needs at Discharge Private Vehicle
--- NOTE | 2024-07-07 15:21 | PM.DS.1 ---
History of Present Illness History of Present Illness Date Patient Seen: 07/07/24 Time Patient Seen: 09:40 Date of Onset of Symptoms: 07/05/24 Chief complaint: syncope, fall onto chest Narrative: 79 M with PMH of CAD (prior CABG), HTN, HLD who presents after an episode of syncope. Patient reports he was shovelling for an hour approximately. He felt light headed, reached out to grab the shovel while feeling dizzy, then fell onto the shovel handle on his left side. He has some difficulty taking a deep breath in on the left side due to pain. He reports previous episodes of dizziness but no prior syncope, during these episodes he does report that he feels as if his heart stops beating. He denies palpitations, shortness of breath, LE edema, chest pain or dyspnea with exertion. 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 He is not taking his aspirin daily anymore. Labs were notable for mildly elevated troponin and proBNP. EKG is without obvious ischemic changes. CT shows a chest wall contusion / possible hematoma without pericardial effusion. Discussed with ER provider. Recommend repeat troponin, agree with ruling out PE as well with CT angio which can serve as repeat CT at 4 hours recommended by cardiology. This could be a cardiac contusion / blunt chest wall injury, though more worrisome causes of syncope including PE, ACS, and bradycardia require a bit more evaluation in the ER. If there is no large PE, no expanding hematoma on his chest wall, no notable bradycardia on telemetry while awaiting studies, and stabilizing troponins patient can be admitted for echocardiogram tomorrow morning here. Please re-discuss with night tele-hospitalist after repeat troponin and CTA are performed. Discharge Providers Provider Date of admission: 07/04/24 19:56 Discharge Date: 07/07/24 Primary care physician: Juan R Pepe MD Consults: 07/06/24 10:33 Consult to Occupational Therapy Evaluate & Treat Comment: Physician Instructions: Evaluate and treat Consult to Physical Therapy Evaluate & Treat Comment: Physician Instructions: Evaluate and Treat 07/06/24 10:46 Consult to Occupational Therapy Evaluate & Treat Comment: weakness/mental status eval Physician Instructions: Evaluate and treat Consult to Physical Therapy Evaluate & Treat Comment: weakness Physician Instructions: Evaluate and Treat Discharge provider: Jose Francisco Garcia MD Summary Hospital Course Discharge Diagnosis: 1. Syncope, possibly due to TIA 2. Transient ischemic attack 3. Left chest wall contusion 4. Non ST segment myocardial infarction, possibly due to chest wall contusion 5. Coronary artery disease 6. Hypertension 7. Hyperlipidemia 8. Chronic kidney disease, stage III Hospital Course: 79-year-old man under the primary care of Dr. Luis A Lees of [place], [place] was admitted for further management and evaluation of a possible non STEMI causing syncope. His initial troponin was normal at 0.012, but on serial studies peaked at 0.155 on the 2nd hospital day and declined to 0.060 on the 3rd hospital day. He had no chest pain or anginal symptoms during the hospitalization, noting only chest discomfort at the site of a left chest wall contusion. He underwent further testing including echocardiography and nuclear medicine stress testing, showing findings consistent with a previous known myocardial infarction with a small amount of jose infarct ischemia which was asymptomatic during stress testing. He continued to have mild gait instability and further study was obtained with brain MRI which failed to demonstrate evidence of a clear-cut stroke. Physical therapy recommended ongoing standby assist due to gait instability. He was offered senior living facility placement to maximize early therapy and reduce risk of fall, however he declined, preferring to return home with family, using front wheel walker and standby assistance. Aspirin prophylaxis was started. No other issues arose. Outpatient follow-up with Cardiology as recommended. Status at Discharge Functional status at discharge: uses cane/walker Overall status at discharge: patient is progressing back to baseline Time Spent with Patient Time spent: Greater than 30 minutes Exam Vital Signs (past 8 hours): - 07/07/24 08:00 07/07/24 08:56 07/07/24 12:00 Temperature 97.6 F 97.6 F Pulse Rate 85 69 68 Respiratory Rate 17 18 Blood Pressure 137/72 137/72 117/71 Pulse Oximetry 94 97 Oxygen Flow Rate 0 0 Oxygen Delivery Method Room Air Oxygen Flow Rate 0 Narrative Exam Narrative: Gen: no acute distress, WDWN CV: RRR no m/r/g Pulm: CTA b/l Abd: S NT ND Ext: no edema, strength +5/5 in all extremities, no deficits in sensation to light touch, no facial droop or slurred speech. Mild gait instability with walking, stable with standby assistance. Objective ECG Impression: Sinus bradycardia at 52 beats per minute, Q-waves inferiorly, no acute ischemic changes (07/04/2024) Imaging Imaging: : Radiologist's impression: 1. Chest CT 07/04/2024: Mild asymmetric prominence of the left chest wall musculature suggestive of edema/potential hematoma given history of trauma. No visualized underlying fracture. 2. Head CT 07/04/2024: 1. No acute intracranial process. 2. Moderate atrophy and chronic microvascular ischemic changes. 3. Chest CT angiogram 07/04/2024: 1. No acute pulmonary emboli. 2. No acute pulmonary process. 3. Stable appearance of left pectoralis muscle, possibly indicating mild sequelae of acute trauma. 4. Coronary artery disease. 4. Echocardiogram 07/04/2024: The ejection fraction is estimated to be 50-55%. There is akinesis along the basal infeior and inferolateral segments. There is hypokinesis to akinesis along the apical segments. There is hypokinesis along the anterolateral and mid inferolateral segments. There is no pericardial effusion. The aortic root is normal size. The dimensions of the ascending aorta are normal. The aortic arch is normal in size. The mitral valve is grossly normal. The aortic valve is grossly normal. 5. Myocardial perfusion scan 07/05/2024: Abnormal pharm nuclear stress test consistent with prior infarction and moderate jose-infarct ischemia 1) There are partially reversible defects in the inferior, lateral, distal anterior, and apical wright consistent with prior infarction and moderate jose-infarct ischemia. SSS 18, SRS. No prone imaging obtained due to shoulder and chest wall pain. 2) Enlarged left ventricle (resting EDV 150cc) with mildly reduced systolic function (EF post stress 46%). There is global hypokinesis that is worse at the apical cap. 3) No diagnostic ST changes with lexiscan. 4) No angina during the study. 5) No prior nuclear stress test available for comparison. 6. Brain MRI 07/06/2024: BRAIN MRI: No findings of acute or subacute infarction can be seen, to the limits of this study. BRAIN MR ANGIOGRAM: To the limits of this study, no significant intracranial arterial abnormality can be seen. NECK MR ANGIOGRAM: Within the arteries of the neck, no hemodynamically significant stenosis can be seen. Labs 07/06/24 11:05 07/06/24 11:05 [facility] Medical History Coronary artery disease Hyperlipidemia Hypertension Social History household members: children Smoking Status: Former smoker Discharge Plan Discharge Plan Patient Disposition: Home Provider Discharge Comment: Follow-up with Dr. Ld Lees in 1 week Discharge orders & Medications Prescriptions: New aspirin 81 mg tablet,delayed release (DR/EC) 81 mg PO DAILY Qty: 1 0RF Continued atorvastatin 40 mg tablet 40 mg PO DAILY losartan-hydrochlorothiazide 100-25 mg tablet 1 tab PO DAILY Follow up/Referrals: Juan R Pepe MD [Primary Care Provider] - Visit Report/Discharge Packet Stand Alone Forms: Patient Portal/API, Stroke Signs & Symptoms Discharge Data Primary Care Provider: Juan R Pepe Quality MIPS - Admit I confirm the patient?s Advance Care Plan is present, Code status is documented, Surrogate decision maker is in patient?s record [If Yes, STOP here]: Yes MIPS - Meds 'Current medications' to include all prescriptions, [id number] products, herbals, cannabis/cannabidiol products, and vitamin/mineral/dietary (nutritional) supplements. I have utilized all available resources to obtain, update, or review the patient?s current medications. [If Yes, STOP here]: Yes MIPS - DC The patient has a history of heart transplant or Left Ventricular Assist Device (LVAD). If yes, STOP here.: No The patient has current or prior documentation of left ventricular ejection fraction (LVEF) less than or equal to 40%, or moderate or severely depressed left ventricular systolic function.: No A. The patient was prescribed or already taking an Angiotensin-Converting Enzyme (SUE) Inhibitor, or Angiotensin Receptor Gabbi (ARB).: Yes B. The patient was prescribed or already taking a beta-gabbi. [If Yes to Both A & B, STOP here]: No Patient not prescribed/taking SUE or ARB, no reason given.: No Patient not prescribed/taking beta-gabbi, no reason given.: No PROFEE Charge Codes Discharge inpatient/observation: [id number]
--- NOTE | 2024-07-07 15:51 | CM.DPNOTE ---
DCP Note PHOTOGEOLOGIST reviewed EMR. Per hospitalist in morning rounds, may dc home today pending MRI results. Later in afternoon, hospitalist confirmed pt safe to dc home with dtr support. PHOTOGEOLOGIST met with pt in room. Confirms dtr able to support at home, and their plan is to stay in motel overnight and then go back to [place] tomorrow. Reports having walker at home and feeling like after a few days of rest he'll be back to his normal self. Denies any DCP/CM needs at this time. 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 P: home today with dtr support and OP cardiology f/u. no identified barriers to safe dc home at this time. CM team will continue to follow as needed REMEDIOS Campos
[2024-07-07] MEDS: ASPIRIN EC 81 MG TABLET PO (16:44)
== END 2024-07-07 16:50 | disposition home or self-care (01) | DRG 604 ==
LOC: ED 19:54 → AC 21:14
PROVIDERS: Internal Medicine; Student in an Organized Health Care Education/Training Program; Admitting Provider Internal Medicine; Emergency Provider Emergency Medicine; Family Provider Internal Medicine Cardiovascular Disease; PCP Internal Medicine Cardiovascular Disease; Referring Provider Emergency Medicine; Visit Provider Internal Medicine
DX: S20.212A Contusion of left front wall of thorax, initial encounter (principal); I21.4 Non-ST elevation (NSTEMI) myocardial infarction; G45.9 Transient cerebral ischemic attack, unspecified; I13.0 Hypertensive heart and chronic kidney disease with heart failure and stage 1 through stage 4 chronic kidney disease, or unspecified chronic kidney disease; I25.10 Atherosclerotic heart disease of native coronary artery without angina pectoris; I50.9 Heart failure, unspecified; E78.5 Hyperlipidemia, unspecified; N18.30 Chronic kidney disease, stage 3 unspecified; W18.30XA Fall on same level, unspecified, initial encounter; Z87.891 Personal history of nicotine dependence; Z95.1 Presence of aortocoronary bypass graft; Z86.73 Personal history of transient ischemic attack (TIA), and cerebral infarction without residual deficits
CPT/HCPCS: 36415; 70450; 70544; 70549; 70553; 71250; 71275; 78452; 80048; 80053; 82550; 83735; 83880; 84484; 85025; 85610; 85730; 93005; 93016; 93017; 93018; 93307; 96360; 97116; 97129; 97161; 97166; 97530; 99284; 99285; A9502; A9579; J1650; J2785; Q9967

== ENCOUNTER 2025-01-17 15:15 | Outpatient (RCR) | payer MEDICARE, SELFPAY ==
[2024-07-04 23:58] VITALS: BMI 27.9
--- NOTE | 2024-12-05 15:12 | PT.OIE ---
Current Diagnoses Benign paroxysmal vertigo, left ear (12/05/24) Past Medical History (Last Reviewed 04/19/21 @ 12:06 by Emanuel Meyers DO) Coronary artery disease Hyperlipidemia Hypertension Visit Care Team Role Provider Type Juan R Pepe MD Family Provider Non-Staff Primary Care Provider Specialty: Internal Medicine Address: [address], [address] Email: Brett Mazariegos MD Attending Provider Physician Referring Provider Specialty: Ear, Nose, Throat Address: [address] [place] [address], [id number] Email: [email or web address] Physical Therapy Initial Evaluation PT-OP-A Visit Information Start: 12/05/24 14:54 Freq: Status: Active Protocol: Document 12/05/24 13:45 DCW (Rec: 12/05/24 15:12 DCW [id number]) Out-Patient Physical Therapy Visit Information Visit Information Visit Type Initial Evaluation Visit Start Time 13:45 Visit Stop Time 14:30 Visit Number 1 Number of LEAD SOFTWARE DEVELOPER Visits 0 Evaluation Information Evaluation Date 12/05/24 PT-OP-B Current Condition Start: 12/05/24 14:54 Freq: Status: Active Protocol: Document 12/05/24 13:45 DCW (Rec: 12/05/24 15:12 DCW [id number]) Current Condition History of Current Condition Onset Date Four months Current Complaints Positional vertigo History of Current Condition Pt is a 79 year old male complaining of a four year history of motion-induced vertigo. Pt reports episodes last 30 seconds. Symptoms are provoked by rolling onto left side or reaching up. 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 Since this time, he has experienced rotational vertigo with positional changes, as well as vague reports of decreased balance. Pt does have fairly significant hearing loss, first received hearing aides two years ago. Pt reports he was searching online, found the John maneuver, and performed it on himself. Believes it helped slightly. 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 Treatment Goals Patient/Caregiver Goals Eliminate positional vertigo in order to enable him to continue work for a least two more years. PT-OP-C Subjective Start: 12/05/24 14:54 Freq: Status: Active Protocol: Document 12/05/24 13:45 DCW (Rec: 12/05/24 15:12 DCW [id number]) OP-PT Subjective Patient Comments Patient Comments I tried the John, I think that's whats going to help me. PT-OP-O Vestibular Start: 12/05/24 14:54 Freq: Status: Active Protocol: Document 12/05/24 13:45 DCW (Rec: 12/05/24 15:12 DCW [id number]) Vestibular Assessment Visual Testing Smooth Pursuits Horizontal WNL Smooth Pursuits Vertical WNL Saccades Horizontal WNL Saccades Vertical WNL Positional Testing Tab-Hallpike Positive Left,Upbeating,< 60 Seconds PT-OP-Q Treatments Start: 12/05/24 14:54 Freq: Status: Active Protocol: Document 12/05/24 13:45 DCW (Rec: 12/05/24 15:12 DCW [id number]) Canalithic Repositioning BPPV Treatment John Affected Canal(s) Left posterior Reps x2 Comments Modified John PT-OP-T Assessment and Plan Start: 12/05/24 14:54 Freq: Status: Active Protocol: Document 12/05/24 13:45 DCW (Rec: 12/05/24 15:12 DCW [id number]) Physical Therapy Assessment Rehab Potential Rehabilitation Potential Good Evaluation Complexity Number of Personal Factors/Comorbidities 3 or More Number of Body Systems Impaired 4 or More Clinical Presentation at Evaluation Unstable Impairments Impairments Balance,Functional Mobility, Posture,ROM,Vestibular Goals Two Impairment Positive left Tab-Hallpike test Prison Goal (LTG) Pt to test negatively with bilateral positional testing in order to demonstrate successful treatment of BPPV. LTG Duration 02/04/25 One Impairment Pt reports rotational vertigo with positional changes during bed mobility Short Term Goal (STG) Pt to indicate no symptoms of vertigo during bed mobility for one full week. STG Duration 12/19/24 Assessment Summary Assessment During left [place]-Hallpike test, pt complained of vertigo and demonstrated up-beating, torsional nystagmus lasting approximately 20 seconds, consistent with diagnosis of left-sided posterior canal BPPV, canalithiasis-type. Pt was treated with a left-sided modified John maneuver. Due to severely limited cervical ROM, pt was difficult to correctly position. A second Tab-Hallpike was performed, and pt remained positive. A second John was performed, this time with the table in an inclined position. Pt was educated on BPPV, expectations for treatment, and post-John restrictions. Pt to return in ~1 week for a follow-up appointment, and intermittently afterward as indicated for treatment of BPPV. Physical Therapy Plan Frequency and Duration Frequency of Treatment 2x/Week Plan of Care Start Date 12/05/24 Plan of Care End Date 02/04/25 Therapeutic Interventions Therapeutic Interventions Balance Training,Canalithic Repositioning,Coordination Training,Home Exercise Program ,Manual Therapy,Neuromuscular Re-education,Patient/Caregiver Education,Self-Care/Home Management,Soft Tissue Mobilization,Therapeutic Activities,Therapeutic Exercises,Vestibular Rehabilitation Next Visit Focus/Plan Next Note Type Treatment Note Next Visit Plan Positional testing, CRM as indicated
--- NOTE | 2024-12-06 15:03 | PT.OTN ---
Current Diagnoses Benign paroxysmal vertigo, left ear (12/06/24) Physical Therapy Treatment Note PT-OP-A Visit Information Start: 12/05/24 14:54 Freq: Status: Active Protocol: Document 12/06/24 14:30 DCW (Rec: 12/06/24 15:03 DCW [id number]) Out-Patient Physical Therapy Visit Information Visit Information Visit Type Treatment Note Visit Start Time 14:30 Visit Stop Time 15:00 Visit Number 2 Number of BALER Visits 0 Evaluation Information Evaluation Date 12/05/24 PT-OP-B Current Condition Start: 12/05/24 14:54 Freq: Status: Active Protocol: Document 12/05/24 13:45 DCW (Rec: 12/05/24 15:12 DCW [id number]) Current Condition History of Current Condition Onset Date Four months Current Complaints Positional vertigo History of Current Condition Pt is a 79 year old male complaining of a four year history of motion-induced vertigo. Pt reports episodes last 30 seconds. Symptoms are provoked by rolling onto left side or reaching up. 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 Since this time, he has experienced rotational vertigo with positional changes, as well as vague reports of decreased balance. Pt does have fairly significant hearing loss, first received hearing aides two years ago. Pt reports he was searching online, found the John maneuver, and performed it on himself. Believes it helped slightly. 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 Treatment Goals Patient/Caregiver Goals Eliminate positional vertigo in order to enable him to continue work for a least two more years. PT-OP-C Subjective Start: 12/05/24 14:54 Freq: Status: Active Protocol: Document 12/06/24 14:30 DCW (Rec: 12/06/24 15:03 DCW [id number]) OP-PT Subjective Patient Comments Patient Comments I though it was a little better for a while, but it's been back to usual now. PT-OP-O Vestibular Start: 12/05/24 14:54 Freq: Status: Active Protocol: Document 12/06/24 14:30 DCW (Rec: 12/06/24 15:03 DCW [id number]) Vestibular Assessment Positional Testing [place]-Hallpike Positive Left,Upbeating,< 60 Seconds PT-OP-Q Treatments Start: 12/05/24 14:54 Freq: Status: Active Protocol: Document 12/06/24 14:30 DCW (Rec: 12/06/24 15:03 DCW [id number]) Manual Therapy Treatment Other Other Manual Treatments Positional testing Canalithic Repositioning BPPV Treatment John Affected Canal(s) Left posterior Reps x2 Comments Modified John, Table 20? Trendelenberg PT-OP-T Assessment and Plan Start: 12/05/24 14:54 Freq: Status: Active Protocol: Document 12/06/24 14:30 DCW (Rec: 12/06/24 15:03 DCW [id number]) Physical Therapy Assessment Impairments Impairments Balance,Functional Mobility, Posture,ROM,Vestibular Goals Two Impairment Positive left Tab-Hallpike test Professor Of Finance Goal (LTG) Pt to test negatively with bilateral positional testing in order to demonstrate successful treatment of BPPV. LTG Duration 02/04/25 One Impairment Pt reports rotational vertigo with positional changes during bed mobility Short Term Goal (STG) Pt to indicate no symptoms of vertigo during bed mobility for one full week. STG Duration 12/19/24 Assessment Summary Assessment Positional testing positive again today for left posterior -canal BPPV. Modified John was performed. Further testing was negative. Pt should benefit from skilled therapy with continued positional testing for re-check and CRM as indicated. Physical Therapy Plan Frequency and Duration Frequency of Treatment 2x/Week Plan of Care Start Date 12/05/24 Plan of Care End Date 02/04/25 Therapeutic Interventions Therapeutic Interventions Balance Training,Canalithic Repositioning,Coordination Training,Home Exercise Program ,Manual Therapy,Neuromuscular Re-education,Patient/Caregiver Education,Self-Care/Home Management,Soft Tissue Mobilization,Therapeutic Activities,Therapeutic Exercises,Vestibular Rehabilitation Next Visit Focus/Plan Next Note Type Treatment Note Next Visit Plan Positional testing, CRM as indicated
--- NOTE | 2024-12-20 15:01 | PT.OTN ---
Current Diagnoses Benign paroxysmal vertigo, left ear (12/20/24) Physical Therapy Treatment Note PT-OP-A Visit Information Start: 12/05/24 14:54 Freq: Status: Active Protocol: Document 12/20/24 14:30 DCW (Rec: 12/20/24 15:00 DCW [id number]) Out-Patient Physical Therapy Visit Information Visit Information Visit Type Treatment Note Visit Start Time 14:30 Visit Stop Time 14:55 Visit Number 3 Number of LITERACY TEACHER Visits 0 Evaluation Information Evaluation Date 12/05/24 PT-OP-B Current Condition Start: 12/05/24 14:54 Freq: Status: Active Protocol: Document 12/05/24 13:45 DCW (Rec: 12/05/24 15:12 DCW [id number]) Current Condition History of Current Condition Onset Date Four months Current Complaints Positional vertigo History of Current Condition Pt is a 79 year old male complaining of a four year history of motion-induced vertigo. Pt reports episodes last 30 seconds. Symptoms are provoked by rolling onto left side or reaching up. 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 Since this time, he has experienced rotational vertigo with positional changes, as well as vague reports of decreased balance. Pt does have fairly significant hearing loss, first received hearing aides two years ago. Pt reports he was searching online, found the John maneuver, and performed it on himself. Believes it helped slightly. 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 Treatment Goals Patient/Caregiver Goals Eliminate positional vertigo in order to enable him to continue work for a least two more years. PT-OP-C Subjective Start: 12/05/24 14:54 Freq: Status: Active Protocol: Document 12/20/24 14:30 DCW (Rec: 12/20/24 15:00 DCW [id number]) OP-PT Subjective Patient Comments Patient Comments Pt reports that dizziness is getting better, but still present. PT-OP-O Vestibular Start: 12/05/24 14:54 Freq: Status: Active Protocol: Document 12/20/24 14:30 DCW (Rec: 12/20/24 15:00 DCW [id number]) Vestibular Assessment Positional Testing [place]-Hallpike Positive Left,Upbeating,< 60 Seconds PT-OP-Q Treatments Start: 12/05/24 14:54 Freq: Status: Active Protocol: Document 12/20/24 14:30 DCW (Rec: 12/20/24 15:00 DCW [id number]) Manual Therapy Treatment Other Other Manual Treatments Positional testing Canalithic Repositioning BPPV Treatment John Affected Canal(s) Left posterior Reps x2 Comments Modified John, Table 20? Trendelenberg PT-OP-T Assessment and Plan Start: 12/05/24 14:54 Freq: Status: Active Protocol: Document 12/20/24 14:30 DCW (Rec: 12/20/24 15:00 DCW [id number]) Physical Therapy Assessment Impairments Impairments Balance,Functional Mobility, Posture,ROM,Vestibular Goals Two Impairment Positive left [place]-Hallpike test [employer] Attendant Goal (LTG) Pt to test negatively with bilateral positional testing in order to demonstrate successful treatment of BPPV. LTG Duration 02/04/25 One Impairment Pt reports rotational vertigo with positional changes during bed mobility Short Term Goal (STG) Pt to indicate no symptoms of vertigo during bed mobility for one full week. STG Duration 12/19/24 Assessment Summary Assessment Pt continues to present with a positive left-sided [place]- Hallpike test, strong up- beating torsional nystagmus with fairly severe subjective vertigo. Cervical ROM continues to be a large limiting factor with performing modified John. Physical Therapy Plan Frequency and Duration Frequency of Treatment 2x/Week Plan of Care Start Date 12/05/24 Plan of Care End Date 02/04/25 Therapeutic Interventions Therapeutic Interventions Balance Training,Canalithic Repositioning,Coordination Training,Home Exercise Program ,Manual Therapy,Neuromuscular Re-education,Patient/Caregiver Education,Self-Care/Home Management,Soft Tissue Mobilization,Therapeutic Activities,Therapeutic Exercises,Vestibular Rehabilitation Next Visit Focus/Plan Next Note Type Treatment Note Next Visit Plan Positional testing, CRM as indicated
--- NOTE | 2024-12-27 12:12 | PT.OTN ---
Current Diagnoses Benign paroxysmal vertigo, left ear (12/27/24) Physical Therapy Treatment Note PT-OP-A Visit Information Start: 12/05/24 14:54 Freq: Status: Active Protocol: Document 12/27/24 11:32 DCW (Rec: 12/27/24 12:12 DCW [id number]) Out-Patient Physical Therapy Visit Information Visit Information Visit Type Treatment Note Visit Start Time 11:32 Visit Stop Time 12:00 Visit Number 4 Number of PANEL FITTER Visits 0 Evaluation Information Evaluation Date 12/05/24 PT-OP-B Current Condition Start: 12/05/24 14:54 Freq: Status: Active Protocol: Document 12/05/24 13:45 DCW (Rec: 12/05/24 15:12 DCW [id number]) Current Condition History of Current Condition Onset Date Four months Current Complaints Positional vertigo History of Current Condition Pt is a 79 year old male complaining of a four year history of motion-induced vertigo. Pt reports episodes last 30 seconds. Symptoms are provoked by rolling onto left side or reaching up. 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 Since this time, he has experienced rotational vertigo with positional changes, as well as vague reports of decreased balance. Pt does have fairly significant hearing loss, first received hearing aides two years ago. Pt reports he was searching online, found the John maneuver, and performed it on himself. Believes it helped slightly. 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 Treatment Goals Patient/Caregiver Goals Eliminate positional vertigo in order to enable him to continue work for a least two more years. PT-OP-C Subjective Start: 12/05/24 14:54 Freq: Status: Active Protocol: Document 12/27/24 11:32 DCW (Rec: 12/27/24 12:12 DCW [id number]) OP-PT Subjective Patient Comments Patient Comments I was doing really great, but then had some sort of a relapse. PT-OP-O Vestibular Start: 12/05/24 14:54 Freq: Status: Active Protocol: Document 12/27/24 11:32 DCW (Rec: 12/27/24 12:12 DCW [id number]) Vestibular Assessment Positional Testing Tab-Hallpike Positive Left,Upbeating,< 60 Seconds PT-OP-Q Treatments Start: 12/05/24 14:54 Freq: Status: Active Protocol: Document 12/27/24 11:32 DCW (Rec: 12/27/24 12:12 DCW [id number]) Canalithic Repositioning BPPV Treatment John Affected Canal(s) Left posterior Reps x3 Comments Modified John, Table 25? Trendelenburg PT-OP-T Assessment and Plan Start: 12/05/24 14:54 Freq: Status: Active Protocol: Document 12/27/24 11:32 DCW (Rec: 12/27/24 12:12 DCW [id number]) Physical Therapy Assessment Impairments Impairments Balance,Functional Mobility, Posture,ROM,Vestibular Goals Two Impairment Positive left [place]-Hallpike test Snf Goal (LTG) Pt to test negatively with bilateral positional testing in order to demonstrate successful treatment of BPPV. LTG Duration 02/04/25 One Impairment Pt reports rotational vertigo with positional changes during bed mobility Short Term Goal (STG) Pt to indicate no symptoms of vertigo during bed mobility for one full week. STG Duration 12/19/24 Assessment Summary Assessment Once again, pt presenting with a positive left Tab-Hallpike, using Trendelenburg table tile due to severely limited cervical ROM. Modified John x3 performed. Pt instructed to return for positional testing and follow-up. Physical Therapy Plan Frequency and Duration Frequency of Treatment 2x/Week Plan of Care Start Date 12/05/24 Plan of Care End Date 02/04/25 Therapeutic Interventions Therapeutic Interventions Balance Training,Canalithic Repositioning,Coordination Training,Home Exercise Program ,Manual Therapy,Neuromuscular Re-education,Patient/Caregiver Education,Self-Care/Home Management,Soft Tissue Mobilization,Therapeutic Activities,Therapeutic Exercises,Vestibular Rehabilitation Next Visit Focus/Plan Next Note Type Treatment Note Next Visit Plan Positional testing, CRM as indicated
--- NOTE | 2025-01-03 10:15 | PT.OTN ---
Current Diagnoses Benign paroxysmal vertigo, left ear (01/03/25) Physical Therapy Treatment Note PT-OP-A Visit Information Start: 12/05/24 14:54 Freq: Status: Active Protocol: Document 01/03/25 09:45 DCW (Rec: 01/03/25 10:15 DCW [id number]) Out-Patient Physical Therapy Visit Information Visit Information Visit Type Treatment Note Visit Start Time 09:45 Visit Stop Time 10:10 Visit Number 5 Number of SEASONING SPRAYER Visits 0 Evaluation Information Evaluation Date 12/05/24 PT-OP-B Current Condition Start: 12/05/24 14:54 Freq: Status: Active Protocol: Document 12/05/24 13:45 DCW (Rec: 12/05/24 15:12 DCW [id number]) Current Condition History of Current Condition Onset Date Four months Current Complaints Positional vertigo History of Current Condition Pt is a 79 year old male complaining of a four year history of motion-induced vertigo. Pt reports episodes last 30 seconds. Symptoms are provoked by rolling onto left side or reaching up. 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 Since this time, he has experienced rotational vertigo with positional changes, as well as vague reports of decreased balance. Pt does have fairly significant hearing loss, first received hearing aides two years ago. Pt reports he was searching online, found the John maneuver, and performed it on himself. Believes it helped slightly. 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 Treatment Goals Patient/Caregiver Goals Eliminate positional vertigo in order to enable him to continue work for a least two more years. PT-OP-C Subjective Start: 12/05/24 14:54 Freq: Status: Active Protocol: Document 01/03/25 09:45 DCW (Rec: 01/03/25 10:15 DCW [id number]) OP-PT Subjective Patient Comments Patient Comments Pt notes symptoms continue. PT-OP-O Vestibular Start: 12/05/24 14:54 Freq: Status: Active Protocol: Document 01/03/25 09:45 DCW (Rec: 01/03/25 10:15 DCW [id number]) Vestibular Assessment Positional Testing Tab-Hallpike Positive Left,Upbeating,< 60 Seconds PT-OP-Q Treatments Start: 12/05/24 14:54 Freq: Status: Active Protocol: Document 01/03/25 09:45 DCW (Rec: 01/03/25 10:15 DCW [id number]) Canalithic Repositioning BPPV Treatment [place] Affected Canal(s) Left Posterior Reps x1 John Affected Canal(s) Left posterior Reps x1 Comments Modified John, Table flat PT-OP-T Assessment and Plan Start: 12/05/24 14:54 Freq: Status: Active Protocol: Document 01/03/25 09:45 DCW (Rec: 01/03/25 10:15 DCW [id number]) Physical Therapy Assessment Impairments Impairments Balance,Functional Mobility, Posture,ROM,Vestibular Goals Two Impairment Positive left [place]-Hallpike test Group Home Goal (LTG) Pt to test negatively with bilateral positional testing in order to demonstrate successful treatment of BPPV. LTG Duration 02/04/25 One Impairment Pt reports rotational vertigo with positional changes during bed mobility Short Term Goal (STG) Pt to indicate no symptoms of vertigo during bed mobility for one full week. STG Duration 12/19/24 Assessment Summary Assessment Pt continues to test positive for left posterior-canal BPPV. Strong up-beating torsional nystagmus. Pt requested a flat table today, felt it was more effective in the past than the Trendelenburg position. Trial of [place] maneuver. Continue to work on CRM as tolerated. Physical Therapy Plan Frequency and Duration Frequency of Treatment 2x/Week Plan of Care Start Date 12/05/24 Plan of Care End Date 02/04/25 Therapeutic Interventions Therapeutic Interventions Balance Training,Canalithic Repositioning,Coordination Training,Home Exercise Program ,Manual Therapy,Neuromuscular Re-education,Patient/Caregiver Education,Self-Care/Home Management,Soft Tissue Mobilization,Therapeutic Activities,Therapeutic Exercises,Vestibular Rehabilitation Next Visit Focus/Plan Next Note Type Treatment Note Next Visit Plan Positional testing, CRM as indicated
--- NOTE | 2025-01-08 15:05 | PT.OTN ---
Current Diagnoses Benign paroxysmal vertigo, left ear (01/08/25) Physical Therapy Treatment Note PT-OP-A Visit Information Start: 12/05/24 14:54 Freq: Status: Active Protocol: Document 01/08/25 14:30 DCW (Rec: 01/08/25 15:05 DCW [id number]) Out-Patient Physical Therapy Visit Information Visit Information Visit Type Treatment Note Visit Start Time 14:30 Visit Stop Time 14:55 Visit Number 6 Number of KNOT CUTTER Visits 0 Evaluation Information Evaluation Date 12/05/24 PT-OP-B Current Condition Start: 12/05/24 14:54 Freq: Status: Active Protocol: Document 12/05/24 13:45 DCW (Rec: 12/05/24 15:12 DCW [id number]) Current Condition History of Current Condition Onset Date Four months Current Complaints Positional vertigo History of Current Condition Pt is a 79 year old male complaining of a four year history of motion-induced vertigo. Pt reports episodes last 30 seconds. Symptoms are provoked by rolling onto left side or reaching up. 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 Since this time, he has experienced rotational vertigo with positional changes, as well as vague reports of decreased balance. Pt does have fairly significant hearing loss, first received hearing aides two years ago. Pt reports he was searching online, found the John maneuver, and performed it on himself. Believes it helped slightly. 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 Treatment Goals Patient/Caregiver Goals Eliminate positional vertigo in order to enable him to continue work for a least two more years. PT-OP-C Subjective Start: 12/05/24 14:54 Freq: Status: Active Protocol: Document 01/08/25 14:30 DCW (Rec: 01/08/25 15:05 DCW [id number]) OP-PT Subjective Patient Comments Patient Comments Pt reports his symptoms are the same, but he's been quite busy, so it's not holding me back. Does think his balance is getting better. PT-OP-O Vestibular Start: 12/05/24 14:54 Freq: Status: Active Protocol: Document 01/08/25 14:30 DCW (Rec: 01/08/25 15:05 DCW [id number]) Vestibular Assessment Positional Testing Tab-Hallpike Positive Left,Upbeating,< 60 Seconds PT-OP-Q Treatments Start: 12/05/24 14:54 Freq: Status: Active Protocol: Document 01/08/25 14:30 DCW (Rec: 01/08/25 15:05 DCW [id number]) Canalithic Repositioning BPPV Treatment John Affected Canal(s) Left posterior Reps x1 Comments Modified John, Table flat PT-OP-T Assessment and Plan Start: 12/05/24 14:54 Freq: Status: Active Protocol: Document 01/08/25 14:30 DCW (Rec: 01/08/25 15:05 DCW [id number]) Physical Therapy Assessment Impairments Impairments Balance,Functional Mobility, Posture,ROM,Vestibular Goals Two Impairment Positive left [place]-Hallpike test Drill Press Hand Goal (LTG) Pt to test negatively with bilateral positional testing in order to demonstrate successful treatment of BPPV. LTG Duration 02/04/25 One Impairment Pt reports rotational vertigo with positional changes during bed mobility Short Term Goal (STG) Pt to indicate no symptoms of vertigo during bed mobility for one full week. STG Duration 12/19/24 Assessment Summary Assessment Pt's symptoms continue. Very limited with repositioning maneuvers due to cervical stiffness. Left modified John once again performed. Did discuss TRV chair, pt interested in perusing further . Will attempt once more next visit, as well as further discussion of TRV. Physical Therapy Plan Frequency and Duration Frequency of Treatment 2x/Week Plan of Care Start Date 12/05/24 Plan of Care End Date 02/04/25 Therapeutic Interventions Therapeutic Interventions Balance Training,Canalithic Repositioning,Coordination Training,Home Exercise Program ,Manual Therapy,Neuromuscular Re-education,Patient/Caregiver Education,Self-Care/Home Management,Soft Tissue Mobilization,Therapeutic Activities,Therapeutic Exercises,Vestibular Rehabilitation Next Visit Focus/Plan Next Note Type Treatment Note Next Visit Plan Positional testing, CRM as indicated
--- NOTE | 2025-01-17 15:45 | PT.OTN ---
Current Diagnoses Benign paroxysmal vertigo, left ear (01/17/25) Physical Therapy Treatment Note PT-OP-A Visit Information Start: 12/05/24 14:54 Freq: Status: Active Protocol: Document 01/17/25 15:15 DCW (Rec: 01/17/25 15:45 DCW [id number]) Out-Patient Physical Therapy Visit Information Visit Information Visit Type Treatment Note Visit Start Time 15:15 Visit Stop Time 15:33 Visit Number 7 Number of SYSTEMS APPLICATIONS PROGRAMMING LEAD Visits 0 Evaluation Information Evaluation Date 12/05/24 PT-OP-B Current Condition Start: 12/05/24 14:54 Freq: Status: Active Protocol: Document 12/05/24 13:45 DCW (Rec: 12/05/24 15:12 DCW [id number]) Current Condition History of Current Condition Onset Date Four months Current Complaints Positional vertigo History of Current Condition Pt is a 79 year old male complaining of a four year history of motion-induced vertigo. Pt reports episodes last 30 seconds. Symptoms are provoked by rolling onto left side or reaching up. 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 Since this time, he has experienced rotational vertigo with positional changes, as well as vague reports of decreased balance. Pt does have fairly significant hearing loss, first received hearing aides two years ago. Pt reports he was searching online, found the John maneuver, and performed it on himself. Believes it helped slightly. 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 Treatment Goals Patient/Caregiver Goals Eliminate positional vertigo in order to enable him to continue work for a least two more years. PT-OP-C Subjective Start: 12/05/24 14:54 Freq: Status: Active Protocol: Document 01/17/25 15:15 DCW (Rec: 01/17/25 15:45 DCW [id number]) OP-PT Subjective Patient Comments Patient Comments Pt's symptoms continue. Would like to look into a clinic with one of the treatment chairs. PT-OP-O Vestibular Start: 12/05/24 14:54 Freq: Status: Active Protocol: Document 01/17/25 15:15 DCW (Rec: 01/17/25 15:45 DCW [id number]) Vestibular Assessment Positional Testing [place]-Hallpike Positive Left,Upbeating,< 60 Seconds PT-OP-Q Treatments Start: 12/05/24 14:54 Freq: Status: Active Protocol: Document 01/17/25 15:15 DCW (Rec: 01/17/25 15:45 DCW [id number]) Canalithic Repositioning BPPV Treatment [place] Affected Canal(s) Left Posterior Reps x1 John Affected Canal(s) Left posterior Reps x1 Comments Modified John, Table flat PT-OP-T Assessment and Plan Start: 12/05/24 14:54 Freq: Status: Active Protocol: Document 01/17/25 15:15 DCW (Rec: 01/17/25 15:45 DCW [id number]) Physical Therapy Assessment Impairments Impairments Balance,Functional Mobility, Posture,ROM,Vestibular Goals Two Impairment Positive left Tab-Hallpike test Hotel Supplies Salesperson Goal (LTG) Pt to test negatively with bilateral positional testing in order to demonstrate successful treatment of BPPV. LTG Duration 02/04/25 One Impairment Pt reports rotational vertigo with positional changes during bed mobility Short Term Goal (STG) Pt to indicate no symptoms of vertigo during bed mobility for one full week. STG Duration 12/19/24 Assessment Summary Assessment Pt likely discharging following today's treatment, but holding chart open in case he needs a return visit. Have not been successful with CRM, pt hoping to follow-up with a clinic that has a BPPV treatment chair available. Physical Therapy Plan Frequency and Duration Frequency of Treatment 2x/Week Plan of Care Start Date 12/05/24 Plan of Care End Date 02/04/25 Therapeutic Interventions Therapeutic Interventions Balance Training,Canalithic Repositioning,Coordination Training,Home Exercise Program ,Manual Therapy,Neuromuscular Re-education,Patient/Caregiver Education,Self-Care/Home Management,Soft Tissue Mobilization,Therapeutic Activities,Therapeutic Exercises,Vestibular Rehabilitation Next Visit Focus/Plan Next Note Type Treatment Note Next Visit Plan Positional testing, CRM as indicated
--- NOTE | 2025-07-10 16:02 | PT.OPDS ---
Current Diagnoses Benign paroxysmal vertigo, left ear (01/17/25) Visit Care Team Role Provider Type Juan R Pepe MD Family Provider Non-Staff Primary Care Provider Specialty: Internal Medicine Address: [address] [place] [address], [facility] [address], [place], [address] Email: Brett Mazariegos MD Attending Provider Physician Referring Provider Specialty: Ear, Nose, Throat Address: [address] [place] [address], [id number] Email: [email or web address] Visit Number Visit Number 7 Discharge Summary PT-OP-T Assessment and Plan Start: 12/05/24 14:54 Freq: Status: Active Protocol: Document 07/10/25 16:01 [facility] (Rec: 07/10/25 16:01 [facility] [id number]) Physical Therapy Assessment Assessment Summary Assessment Plan was for pt to phone for follow-up if symptoms persisted, pt has not been seen now in more than five months, will be discharged from skilled therapy at this time. Physical Therapy Plan Discharge Physical Therapy Discharge Reasons No Longer Attending PT
== END 2025-07-11 10:50 | disposition home or self-care (01) ==
LOC: PHYS 15:15
PROVIDERS: Family Provider Internal Medicine Cardiovascular Disease; PCP Internal Medicine Cardiovascular Disease; Referring Provider Otolaryngology Facial Plastic Surgery; Visit Provider Otolaryngology Facial Plastic Surgery
DX: H81.12 Benign paroxysmal vertigo, left ear (principal)
CPT/HCPCS: 95992; 97140; 97163